=== PATIENT | male | born 2000 | race Caucasian/White ===

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

== ENCOUNTER 2021-05-05 03:43 | Emergency (ER) | payer OTHER, SELFPAY ==
[2021-05-05 03:46] VITALS: BP 139/81; PULSE 67; RESP 18; TEMP 36.6; O2SAT 100
--- NOTE | 2021-05-05 04:19 | ED.GENADULT ---
HPI - General Adult General Chief complaint: Dental/Oral Stated complaint: dental pain Time Seen by Provider: 05/05/21 04:13 History of Present Illness HPI narrative: Patient 20-year-old gentleman who presents the emergency department with chief complaint of dental pain. Patient reports he has pain in his lower mandible reports that it is worse with movement and improved with rest. The patient states that he was unable to get comfortable this evening and reports that has not seen a dentist. Related Data Home Medications Medication Instructions Recorded Confirmed beclomethasone dipropionate [Qvar INHALATION 11/01/19 RediHaler] Allergies Allergy/AdvReac Type Severity Reaction Status Date / Time mushroom Allergy Hives Verified 09/16/20 23:12 pineapple Allergy Hives Verified 09/16/20 23:12 Review of Systems Review of Systems: A 10 system review of systems was completed on the patient and is negative except for what is stated in the HPI. Nursing and ancillary documentation was reviewed. [facility] Past Medical History Medical History (Updated 05/05/21 @ 04:21 by Davdi Butler MD) History of asthma History of depression History of gastroesophageal reflux (GERD) Social History Social History Smoking status: Never smoker Alcohol intake: never Gender identity (if verbalized by the patient): Male Exam Narrative: GENERAL: Well-appearing, well-nourished, and in no acute distress. HEAD: Normocephalic, atraumatic. EYES: PERRLA and EOMI. ENT: Nares clear, no rhinorrhea or epistaxis. Mucous membranes moist. There are several dental caries in the lower mandible NECK: Supple. CHEST: Clear to auscultation. No respiratory distress. HEART: Regular rate and rhythm. No murmur heard. Normal peripheral pulses. ABDOMEN: Soft, nontender, nondistended, normal active bowel sounds. EXTREMITIES: Normal range of motion. No edema. SKIN: Warm, dry, no rash. NEURO: No focal deficits. Alert and oriented x3. PSYCH: Normal mood and affect. Course Vital Signs Vital signs: Vital Signs Temperature 36.6 C 05/05/21 03:46 Pulse Rate 67 05/05/21 03:46 Respiratory Rate 18 05/05/21 03:46 Blood Pressure 139/81 05/05/21 03:46 Pulse Oximetry 100 05/05/21 03:46 Temperature 36.6 C 05/05/21 03:46 Pulse Rate 67 05/05/21 03:46 Respiratory Rate 18 05/05/21 03:46 Blood Pressure 139/81 05/05/21 03:46 Pulse Oximetry 100 05/05/21 03:46 Medical Decision Making Vital Signs Vital Signs: Vital Signs Temperature 36.6 C 05/05/21 03:46 Pulse Rate 67 05/05/21 03:46 Respiratory Rate 18 05/05/21 03:46 Blood Pressure 139/81 05/05/21 03:46 Pulse Oximetry 100 05/05/21 03:46 Temperature 36.6 C 05/05/21 03:46 Pulse Rate 67 05/05/21 03:46 Respiratory Rate 18 05/05/21 03:46 Blood Pressure 139/81 05/05/21 03:46 Pulse Oximetry 100 05/05/21 03:46 Discharge Plan Discharge Clinical Impression: Odontalgia, Dental caries Patient Disposition: Home, Self-Care Condition: Stable Instructions: Antibiotic Form, Toothache (ED) Prescriptions: New amoxicillin 500 mg capsule 500 mg PO Q12H Qty: 20 RF: 0 ibuprofen 800 mg tablet 800 mg PO TID PRN (Reason: pain) Qty: 30 RF: 0 No Action valacyclovir 1 gram tablet 1,000 mg PO Q12H 7 Days Qty: 14 RF: 0 amoxicillin 875 mg tablet 875 mg PO Q12H Qty: 20 RF: 0 Qvar RediHaler 80 mcg/actuation HFA aerosol breath activated INHALATION RF: 0 famotidine [Pepcid] 20 mg tablet 20 mg PO BID Qty: 30 RF: 0 loratadine [Claritin] 10 mg tablet 10 mg PO DAILY PRN (Reason: allergy symptoms) Qty: 7 RF: 0 fluticasone propionate [Flonase Allergy Relief] 50 mcg/actuation spray,suspension 2 spray NASAL DAILY Qty: 9.9 RF: 0 albuterol sulfate 90 mcg/actuation HFA aerosol inhaler 3 inhalation INHALATION Q4H PRN (Reason:
[2021-05-05] MEDS: AMOXICILLIN 500 MG CAPSULE PO (04:32)
[2021-05-05] MEDS: IBUPROFEN 400 MG TABLET 800 MG PO (04:32)
== END 2021-05-05 04:36 | disposition home or self-care (01) ==
PROVIDERS: Emergency Provider Emergency Medicine; PCP Family Medicine
DX: K02.9 Dental caries, unspecified (principal); J45.909 Unspecified asthma, uncomplicated; K21.9 Gastro-esophageal reflux disease without esophagitis
CPT/HCPCS: 99283; A9270

== ENCOUNTER 2021-09-30 07:36 | Emergency (ER) | payer OTHER, SELFPAY ==
--- NOTE | 2021-09-30 08:01 | ED.DENTAL ---
HPI - Dental/Oral General Chief complaint: Dental/Oral Stated complaint: toothache Time Seen by Provider: 09/30/21 07:58 History of Present Illness HPI Narrative: 20-year-old male presented to the emergency department for evaluation of recurrent dental pain. Patient states over the last 3 months he had multiple episodes of recurrent dental pain. Patient has been on antibiotics previously and states this does help but then the pain does return. Patient has not yet had follow-up with a dentist. Patient states is the bottom right molars that are causing the problem. Patient has been taking [id number] pain medication without significant improvement. Related Data Home Medications Medication Instructions Recorded Confirmed beclomethasone dipropionate 80 inhalation 11/01/19 mcg/actuation HFA breath activated aerosol (Qvar RediHaler) Allergies Allergy/AdvReac Type Severity Reaction Status Date / Time mushroom Allergy Hives Verified 09/16/20 23:12 pineapple Allergy Hives Verified 09/16/20 23:12 Review of Systems Review of Systems: CONSTITUTIONAL: Denies fever, chills, or sweats. EYES: Denies visual changes, redness, or discharge. ENT: See HPI CARDIOVASCULAR: Denies chest pain, palpitations, or edema. RESPIRATORY: Denies cough or dyspnea. GASTROINTESTINAL: Denies abdominal pain, nausea, vomiting, or diarrhea. GENITOURINARY: Denies dysuria or hematuria. SKIN: Denies rash or itching. MUSCULOSKELETAL: Denies back pain, joint pain, or myalgia. NEUROLOGIC: Denies headache, numbness, or weakness. [facility] Past Medical History Medical History (Updated 10/01/21 @ 00:00 by Chuck Frank) History of asthma History of depression History of gastroesophageal reflux (GERD) Social History Social History Smoking status: Never smoker Alcohol intake: never Gender identity (if verbalized by the patient): Male Exam Narrative: APPEARANCE: Well appearing, no pain, no distress, well-nourished. HEAD: normocephalic, atraumatic. EYES: PERRLA/EOMI, conjunctivae clear. NOSE: Normal no drainage EARS:TMS clear with good light reflex. THROAT: Pharynx clear, no exudate. Dental carry involving the right lower molars. No abscess, no trismus, NECK: Supple. No adenopathy, no masses. RESPIRATORY: Airway patent, respirations nonlabored. Clear to auscultation bilaterally, no rales, rhonchi, wheezing. CARDIOVASCULAR: Regular rate and rhythm without murmurs rubs or gallops. ABDOMINAL: Soft, nontender, nondistended, normal bowel sounds MUSCULOSKELETAL: Moves all extremities. Strength/ROM intact, No edema, No calf tenderness. NEURO: Alert. Cranial nerves II through XII intact. Good gait. Good coordination SKIN: Warm, dry. Normal Color PSYCHIATRIC: Normal affect/mood. Course Course Emergency Course: Patient was started on Augmentin in the emergency department. Patient was also provided a prescription for Augmentin for home. Patient was also provided a prescription for ibuprofen. Patient was strongly encouraged to have close follow-up with a dentist or that this will continue to be a recurrent issue for him. Vital Signs Vital signs: Vital Signs Temperature 98.6 F 09/30/21 08:10 Pulse Rate 72 09/30/21 08:10 Respiratory Rate 14 09/30/21 08:10 Blood Pressure 126/78 09/30/21 08:10 Pulse Oximetry 99 09/30/21 08:10 Oxygen Delivery Room Air 09/30/21 08:10 Temperature 98.6 F 09/30/21 08:10 Pulse Rate 72 09/30/21 08:10 Respiratory Rate 14 09/30/21 08:10 Blood Pressure 126/78 09/30/21 08:10 Pulse Oximetry 99 09/30/21 08:10 Oxygen Delivery Room Air 09/30/21 08:10 Discharge Plan Discharge Clinical Impression: Pain, dental, Dental caries Patient Disposition: Home, Self-Care Condition: Stable Instructions: Antibiotic Form, Toothache (ED) Additional Instructions: Antibiotic as directed until completed. Tylenol a
[2021-09-30 08:10] VITALS: BP 126/78; PULSE 72; RESP 14; TEMP 37; O2SAT 99
[2021-09-30] MEDS: AMOXICILLIN/CLAVULANATE K 875-125 MG TAB 1 TABLET PO (08:49)
== END 2021-09-30 08:53 | disposition home or self-care (01) ==
PROVIDERS: Emergency Provider Emergency Medicine; PCP Family Medicine
DX: K02.9 Dental caries, unspecified (principal); J45.909 Unspecified asthma, uncomplicated; K21.9 Gastro-esophageal reflux disease without esophagitis
CPT/HCPCS: 99283; A9270

== ENCOUNTER 2021-10-09 11:48 | Emergency (ER) | payer OTHER, SELFPAY ==
[2021-10-09 11:56] VITALS: BP 142/65; PULSE 55; RESP 20; TEMP 36.7; O2SAT 100
--- NOTE | 2021-10-09 12:08 | PC.NURSE ---
EDP at bedside to assess pt.
--- NOTE | 2021-10-09 12:18 | ED.DENTAL ---
HPI - Dental/Oral General Chief complaint: Dental/Oral Stated complaint: tooth ache Time Seen by Provider: 10/09/21 11:52 History of Present Illness HPI Narrative: 20-year-old male presents to the emergency room for evaluation of right lower dental pain. Patient states he was recently evaluated here in the emergency room for dental pain, has completed a course of antibiotics. Patient states that he made appointment to see a dentist, but is not until November. Patient is complaining of a different tooth pain. Related Data Home Medications Medication Instructions Recorded Confirmed beclomethasone dipropionate 80 inhalation 11/01/19 mcg/actuation HFA breath activated aerosol (Qvar RediHaler) Allergies Allergy/AdvReac Type Severity Reaction Status Date / Time mushroom Allergy Hives Verified 09/16/20 23:12 pineapple Allergy Hives Verified 09/16/20 23:12 Review of Systems Review of Systems: CONSTITUTIONAL: Denies fever, chills, or sweats. EYES: Denies visual changes, redness, or discharge. ENT: Reports dental pain CARDIOVASCULAR: Denies chest pain, palpitations, or edema. RESPIRATORY: Denies cough or dyspnea. GASTROINTESTINAL: Denies abdominal pain, nausea, vomiting, or diarrhea. GENITOURINARY: Denies dysuria or hematuria. SKIN: Denies rash or itching. MUSCULOSKELETAL: Denies back pain, joint pain, or myalgia. NEUROLOGIC: Denies headache, numbness, dizziness, or weakness. PSYCHIATRIC: Denies anxiety or depression. [facility] Past Medical History Medical History (Updated 10/09/21 @ 12:20 by Gregg Barros APRN) History of asthma History of depression History of gastroesophageal reflux (GERD) Social History Social History Smoking status: Never smoker Alcohol intake: never Gender identity (if verbalized by the patient): Male Exam Narrative: GENERAL: Well-appearing, well-nourished, no physical limitations, and in no acute distress. HEAD: Normocephalic, atraumatic. EYES: Conjunctivae normal, PERRLA and EOMI. ENT: Tenderness to the right lower canine, widespread caries NECK: Supple. No meningeal signs. No adenopathy or masses. No carotid bruits or JVD CHEST: Clear to auscultation. No respiratory distress. No wheezes rales or rhonchi. No tenderness. HEART: Regular rate and rhythm. No murmur heard. Normal peripheral pulses. EXTREMITIES: Normal range of motion. No edema. No clubbing or cyanosis SKIN: Warm, dry, no rash. No noted wounds NEURO: No focal deficits. Alert and oriented x3. MAEW. CN's II-XI intact bilaterally, normal gait PSYCH: Cooperative. Normal mood and affect. Course Vital Signs Vital signs: Vital Signs Temperature 36.7 C 10/09/21 11:56 Pulse Rate 55 L 10/09/21 11:56 Respiratory Rate 20 10/09/21 11:56 Blood Pressure 142/65 H 10/09/21 11:56 Pulse Oximetry 100 10/09/21 11:56 Oxygen Delivery Room Air 10/09/21 11:56 Temperature 36.7 C 10/09/21 11:56 Pulse Rate 55 L 10/09/21 11:56 Respiratory Rate 20 10/09/21 11:56 Blood Pressure 142/65 H 10/09/21 11:56 Pulse Oximetry 100 10/09/21 11:56 Oxygen Delivery Room Air 10/09/21 11:56 Discharge Plan Discharge Clinical Impression: Toothache Patient Disposition: Home, Self-Care Condition: Stable Instructions: Antibiotic Form, Toothache (ED) Additional Instructions: Recommend [facility]. May also take Orajel and placed on affected tooth. Recommend switching her toothpaste to Sensodyne. Prescriptions: New naproxen [Naprosyn] 500 mg tablet 500 mg PO BID Qty: 20 0RF No Action valacyclovir 1 gram tablet 1,000 mg PO Q12H 7 Days Qty: 14 0RF amoxicillin 875 mg tablet 875 mg PO Q12H Qty: 20 0RF Qvar RediHaler 80 mcg/actuation HFA aerosol breath activated INHALATION famotidine [Pepcid] 20 mg tablet 20 mg PO BID Qty: 30 0RF loratadine [Claritin] 10 mg tablet 10 mg PO D
== END 2021-10-09 12:57 | disposition home or self-care (01) ==
PROVIDERS: Emergency Provider Nurse Practitioner Family; PCP Family Medicine
DX: K08.89 Other specified disorders of teeth and supporting structures (principal); J45.909 Unspecified asthma, uncomplicated; K21.9 Gastro-esophageal reflux disease without esophagitis
CPT/HCPCS: 99283

== ENCOUNTER 2021-10-14 09:07 | Observation (INO) | payer OTHER, SELFPAY ==
--- NOTE | ~2021-10-14 | CT_ITS ---
EXAMINATION: CT abdomen pelvis wo con DATE: 10/14/2021 10:57 INDICATION: Hematuria. Generalized abdominal pain. Nausea, vomiting, diarrhea for 3 days TECHNIQUE: Computed tomography (CT) of the abdomen and pelvis was performed without intravenous contr ast. Automated exposure control and iterative reconstruction technique were employed. Exam dose: 261 .22 mGy-cm total exam DLP. COMPARISON: June 08, 2017 right upper quadrant abdominal ultrasound, reported normal FINDINGS: The lung bases are clear. Normal heart size. No pericardial or pleural effusion. The liver, gallbladder, bile ducts, spleen, pancreas, pancreatic duct and adrenal glands are normal. Approximately 1.7 x 3.3 mm calculus is suggested at the lower pole of the right kidney no ureteral ca lculus or hydroureteronephrosis. Normal caliber of the abdominal aorta. No intraperitoneal or retroperitoneal or pelvic mass lesion or adenopathy or ascites. There is a tubular blind ending structure in the right lower quadrant measuring up to 10 mm diameter, with mild adjacent fat stranding, most consistent with acute appendicitis. No appendiceal abscess or free air is evident. Included skeletal structures are unremarkable. IMPRESSION: Acute appendicitis; no abscess or free air Small nonobstructing lower pole right renal calculus is suggested Reviewed, dictated and finalized at [facility] Reviewed, dictated and finalized at [facility].
[2021-10-14 09:10] VITALS: BP 128/75; PULSE 103; RESP 16; TEMP 37.4; O2SAT 100
[2021-10-14 09:32] LABS: Hematocrit 44.3 % (42.0-52.0); Hemoglobin 14.6 g/dL (14.0-18.0); Mean Corpuscular Hemoglobin 27.9 pg (26-34); Mean Corpuscular Volume 84.5 fl (80-100); Mean Platelet Volume 9.9 fl (7.4-10.4); Platelet Count Result 222 k/mm3 (150-375); Red Blood Count 5.24 M/mm3 (4.6-6.20); Red Cell Distribution Width 13.8 % (11.5-14.5); White Blood Count 11.2 K/mm3 (4.5-10.0)
[2021-10-14 09:33] LABS: Appearance Urine Slightly Cloudy (Clear); Bilirubin Urine 1+ (Negative); Blood Urine 3+ (Negative); Color Urine Amber (Yellow); Glucose Urine UA 1+ mg/dL (Negative); Ketones Urine 1+ mg/dL (Negative); Leukocyte Esterase Ur Negative LEU/UL (Negative); Nitrate Urine Negative (Negative); Protein Urine 2+ mg/dL (Negative); Specific Grav Ur >= 1.030 (1.001-1.035); Urobilinogen Urine 0.2 mg/dL (<2.0)
[2021-10-14 09:43] LABS: Alanine Aminotransferase 29 U/L (6-50); Albumin Level 4.8 g/dL (3.7-5.6); Alkaline Phosphatase 126 U/L (58-237); Anion Gap 11 mmol/L (8-16); Aspartate Amino Transferase 31 U/L (17-59); Bilirubin,Total 2.3 mg/dL (0.2-1.3); Blood Urea Nitrogen 16 mg/dL (8-21); Calcium 9.2 mg/dL (8.9-10.7); Carbon Dioxide 22 mmol/L (22-30); Chloride 100 mmol/L (98-107); Estimated CRCL calculation 101 ml/min; Estimated Glomerular Filt Rate > 60; Glucose 163 mg/dL (65-110); Lipase 39 U/L (23-300); Potassium 3.6 mmol/L (3.4-5.0); Sodium 133 mmol/L (134-143)
[2021-10-14 09:49] LABS: Mucus Urine Heavy /lpf; RBC Urine >75 /hpf (0-2); Squamous Epithelial Cell Urine Rare /hpf (Few)
[2021-10-14 09:59] LABS: Add Urine Microscopic? YES
[2021-10-14 10:06] LABS: Band Neutrophils Percent 26 % (0-6); Lymphocytes Absolute Manual 0.44 K/mm3 (1.1-4.5); Monocytes Percent Manual 9 % (3-9); Neutrophils Absolute Manual 9.74 K/mm3 (1.3-6.7); Neutrophils Percent Manual 61 % (46-73); Platelet Estimate Adequate (Adequate); Total Cells Counted 100
--- NOTE | 2021-10-14 10:52 | ED.NAVMDI ---
HPI - Nausea/Vomiting/Diarrhea General Chief complaint: Nausea/Vomiting/Diarrhea Stated complaint: abd pain Time Seen by Provider: 10/14/21 10:45 History of Present Illness HPI Narrative: 20-year-old male presents to the emergency room for evaluation of generalized abdominal pain associated with vomiting and diarrhea for 3 days. Patient pain is cramping and sharp at times. Has had multiple episodes of nonbilious nonbloody emesis, and upwards of 15-20 episodes of diarrhea. Patient denies fever Related Data Home Medications Medication Instructions Recorded Confirmed beclomethasone dipropionate 80 inhalation 11/01/19 mcg/actuation HFA breath activated aerosol (Qvar RediHaler) Allergies Allergy/AdvReac Type Severity Reaction Status Date / Time mushroom Allergy Hives Verified 10/14/21 09:17 pineapple Allergy Hives Verified 10/14/21 09:17 Review of Systems Review of Systems: CONSTITUTIONAL: Denies fever, chills, or sweats. EYES: Denies visual changes, redness, or discharge. ENT: Denies rhinorrhea, congestion, sore throat, or otalgia. CARDIOVASCULAR: Denies chest pain, palpitations, or edema. RESPIRATORY: Denies cough or dyspnea. GASTROINTESTINAL: Reports abdominal pain, nausea, vomiting, or diarrhea. GENITOURINARY: Denies dysuria or hematuria. SKIN: Denies rash or itching. MUSCULOSKELETAL: Denies back pain, joint pain, or myalgia. NEUROLOGIC: Denies headache, numbness, dizziness, or weakness. PSYCHIATRIC: Denies anxiety or depression. [facility] Past Medical History Medical History (Updated 10/14/21 @ 12:44 by Gregg Barros APRN) History of asthma History of depression History of gastroesophageal reflux (GERD) Social History Social History Smoking status: Never smoker Alcohol intake: never Gender identity (if verbalized by the patient): Male Exam Narrative: GENERAL: Well-appearing, well-nourished, no physical limitations, and in no acute distress. HEAD: Normocephalic, atraumatic. EYES: Conjunctivae normal, PERRLA and EOMI. CHEST: Clear to auscultation. No respiratory distress. No wheezes rales or rhonchi. No tenderness. HEART: Regular rate and rhythm. No murmur heard. Normal peripheral pulses. ABDOMEN: Soft, generalized tenderness, nondistended, normal active bowel sounds. BACK: No CVA tenderness EXTREMITIES: Normal range of motion. No edema. No clubbing or cyanosis SKIN: Warm, dry, no rash. No noted wounds NEURO: No focal deficits. Alert and oriented x3. MAEW. CN's II-XI intact bilaterally, normal gait PSYCH: Cooperative. Normal mood and affect. Course Vital Signs Vital signs: Vital Signs Temperature 37.4 C 10/14/21 09:10 Pulse Rate 103 H 10/14/21 09:10 Respiratory Rate 16 10/14/21 09:10 Blood Pressure 128/75 10/14/21 09:10 Pulse Oximetry 100 10/14/21 09:10 Oxygen Delivery Room Air 10/14/21 09:10 Temperature 37.4 C 10/14/21 09:10 Pulse Rate 76 10/14/21 12:30 Respiratory Rate 18 10/14/21 12:30 Blood Pressure 111/57 L 10/14/21 12:30 Pulse Oximetry 99 10/14/21 12:30 Oxygen Delivery Room Air 10/14/21 09:10 MDM - Nausea/Vomiting/Diarrhea MDM Narrative Medical decision making narrative: 20-year-old male presented to the emergency room complaints of generalized abdominal pain for 3 days. Patient states that he had multiple episodes of vomiting and diarrhea. Abdominal exam was without any peritoneal signs. CT scan shows an acute appendectomy with no evidence of abscess. Discussed case with Dr. Goldsmith who is willing to admit under his service. Patient was given a liter of fluid and Zosyn was started in the emergency room. Lab Data Result diagrams: 10/14/21 09:24 10/14/21 09:24 Labs: Lab Results 10/14/21 10/14/21 10/14/21 Range/Units 09:24 09:24 09:24 WBC 11.2 H (4.5-10.0) K/mm3 RBC 5.24 (4.6-6.20) M/mm3 Hgb 14.6 (14.0-18.0) g/dL Hct
[2021-10-14] MEDS: SODIUM CHLORIDE 0.9% IV 1,000 ML 999 ML IV CONT (11:04)
[2021-10-14] MEDS: METOCLOPRAMIDE HCL INJ 10 MG/2 ML VIAL IV PUSH (11:05)
[2021-10-14] MEDS: FAMOTIDINE 20 MG/2 ML VIAL IV PUSH ×2 (11:05→20:12)
[2021-10-14] MEDS: diphenhydrAMINE HCl INJ 50 MG/ML VIAL 25 MG IV PUSH (11:05)
[2021-10-14] MEDS: LACTATED RINGERS 1,000 ML 999 ML IV CONT (11:11)
[2021-10-14] MEDS: ONDANSETRON INJ 4 MG/2 ML VIAL IV PUSH (11:11)
[2021-10-14] MEDS: PIPERACILLIN/TAZOBACTAM SOD 4.5 GM in SODIUM CHLORIDE 0.9% IV 100 ML 200 ML IVPB (12:27)
[2021-10-14 12:30] VITALS: BP 111/57; PULSE 76; RESP 18; O2SAT 99
[2021-10-14 14:21] VITALS: BP 117/70; PULSE 94; RESP 18; TEMP 36.8; O2SAT 100; BMI 24.3
--- NOTE | 2021-10-14 14:21 | ADMGEN ---
This patient, Darrel Herron, was admitted to Medical Room 346-01. Patient/family oriented to hospital policies and general routines including ID bracelet, bed and alarms, visiting hours, pain management, procedures, bathroom and other care routines, personal items, smoking policy, room service/diet, and visiting hours. Information on how to activate the Rapid Response Team has been discussed. Patient/Family are encouraged to report perceived risks to care and to ask questions if they do not understand what they are told or what they should do.
[2021-10-14] MEDS: SODIUM CHLORIDE 0.9% IV 1,000 ML 125 ML IV CONT ×2 (14:45→20:12)
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
[2021-10-14 16:44] VITALS: BMI 23.3
[2021-10-14 20:00] VITALS: BP 118/60; PULSE 96; RESP 16; TEMP 38.1; O2SAT 100
[2021-10-14 21:19] VITALS: TEMP 38.1
[2021-10-14 21:44] VITALS: BP 118/60; PULSE 96; RESP 16; TEMP 38.1; O2SAT 100
[2021-10-14 22:51] LABS: SARS-CoV-2 RNA PCR Negative
[2021-10-15] VITALS: BP 110/61; PULSE 96; RESP 16; TEMP 37.2; O2SAT 100
[2021-10-15 04:00] VITALS: BP 101/85; PULSE 66; RESP 14; TEMP 36.7; O2SAT 100
[2021-10-15] MEDS: SODIUM CHLORIDE 0.9% IV 1,000 ML 125 ML IV CONT (05:53)
[2021-10-15 06:00] VITALS: BP 101/85; PULSE 66; RESP 14; TEMP 36.7; O2SAT 100
[2021-10-15 06:27] LABS: Hematocrit 37.4 % (42.0-52.0); Hemoglobin 12.8 g/dL (14.0-18.0); Mean Corpuscular HGB Conc 34.2 g/dl (32-36); Mean Corpuscular Hemoglobin 28.2 pg (26-34); Mean Corpuscular Volume 82.4 fl (80-100); Mean Platelet Volume 10.3 fl (7.4-10.4); Platelet Count Result 175 k/mm3 (150-375); Red Blood Count 4.54 M/mm3 (4.6-6.20); Red Cell Distribution Width 13.7 % (11.5-14.5); White Blood Count 6.3 K/mm3 (4.5-10.0)
[2021-10-15 07:20] LABS: Alanine Aminotransferase 19 U/L (6-50); Albumin Level 3.3 g/dL (3.7-5.6); Alkaline Phosphatase 96 U/L (58-237); Anion Gap 3 mmol/L (8-16); Aspartate Amino Transferase 33 U/L (17-59); Bilirubin,Total 1.2 mg/dL (0.2-1.3); Blood Urea Nitrogen 10 mg/dL (8-21); Calcium 8.2 mg/dL (8.9-10.7); Carbon Dioxide 26 mmol/L (22-30); Chloride 107 mmol/L (98-107); Estimated CRCL calculation 105 ml/min; Estimated Glomerular Filt Rate > 60; Glucose 105 mg/dL (65-110); Magnesium 1.7 mg/dL (1.6-2.3); Potassium 4.1 mmol/L (3.4-5.0); Sodium 136 mmol/L (134-143)
[2021-10-15 07:52] LABS: Band Neutrophils Percent 42 % (0-6); Lymphocytes Absolute Manual 0.37 K/mm3 (1.1-4.5); Monocytes Percent Manual 8 % (3-9); Neutrophils Absolute Manual 5.41 K/mm3 (1.3-6.7); Neutrophils Percent Manual 44 % (46-73); Platelet Estimate Adequate (Adequate); Total Cells Counted 100
[2021-10-15] MEDS: FAMOTIDINE 20 MG/2 ML VIAL IV PUSH (09:21)
--- NOTE | 2021-10-15 10:22 | PM.PNGS ---
Progress Note: A&P Assessment and Plan (1) Acute appendicitis: Code(s): K35.80 - Unspecified acute appendicitis Status: Acute Assessment and Plan: Clinically improving on IV antibiotics. Still has not had any abdominal or flank pain since being in the ER. WBC normal, afebrile. Will advance diet as tolerated to a regular diet. Repeat UA and add gonorrhea/chlamydia testing. Still believe that he may have passed a kidney stone causing his symptoms. Unclear if he truly has appendicitis. Dr. Goldsmith will review the CT with the Radiologist today, if there is still a question of appendicitis on the CT then we will send him with oral antibiotics on discharge. Continue IV Zosyn for now. If he tolerates his diet and continues to do well later today, then could discharge this afternoon. (2) Abnormal urinalysis: Code(s): R82.90 - Unspecified abnormal findings in urine Status: Acute Assessment and Plan: Initial UA abnormal with high RBCs. May have passed a stone. Repeat a UA today and add G/C testing. No urinary complaints today. Recommended f/u with PCP after discharge. May need Urology referral. (3) Nausea and vomiting: Code(s): R11.2 - Nausea with vomiting, unspecified Status: Acute Assessment and Plan: Resolved. Advance diet as tolerated. COVID negative. (4) History of asthma: Code(s): Z87.09 - Personal history of other diseases of the respiratory system Status: Acute Assessment and Plan: No acute issues. No wheezing on exam. F/u with PCP for further management. (5) History of gastroesophageal reflux (GERD): Code(s): Z87.19 - Personal history of other diseases of the digestive system Status: Acute Assessment and Plan: Continue IV Pepcid. (6) Right kidney stone: Code(s): N20.0 - Calculus of kidney Status: Acute Assessment and Plan: Incidentally noted on CT. This is not in the ureter and there is no hydronephrosis or evidence of an obstruction. Discussed signs and symptoms of passing a stone and what to look for. Recommended f/u with PCP as an outpatient. Plan I have discussed the patient's case and plan of care with Dr. Goldsmith. Subjective Subjective Date/Time Seen: 10/15/21 09:22 Patient reports: no new complaints, feels better, tolerating liquids well, voiding w/o difficulty, flatus and afebrile Interval history: Patient seen and examined. He reports feeling much better today. No complaints and denies any abdominal pain, nausea, or vomiting. He has tolerated liquids for breakfast. He is not having any urinary complaints or flank pain. Voiding without difficulty. Afebrile and WBC count down to normal this morning. Review of Systems Review of Systems: All systems reviewed & are unremarkable except as noted in HPI and below Exam Const: General: comfortable, no acute distress and awake Orientation/consciousness: patient oriented x3 Resp: Effort & Inspection: no respiratory distress Auscultation: clear to auscultation bilaterally Cardio: Rate: regular rate Rhythm: regular rhythm GI: Inspection: normal to inspection and non-distended GI Palp: Yes Soft to palpation, No Tenderness to palpation present (GI), No Guarding due to palpation present (GI), No Hernia present and No Rebound tenderness present Percussion: Yes normal to percussion Auscultation: normal bowel sounds Back/Spine/Pelvis: Back: no CVA tenderness Neuro: General: moves all extremities and no focal motor deficits Extrem: General: normal to inspection Psych: Insight: Good insight present (Psych) Judgement: Good judgement present (Psych) Objective Data Vital Signs Vital Signs: Vital Signs - 24 hr 10/14/21 12:30 10/14/21 14:21 10/14/21 21:19 Temperature 98.2 F 100.5 F H Pulse Rate 76 94 Respiratory Rate 18 18 Blood Pressure 111/57 L 117/70 Pulse Oximetry 99 100 10/14/21 20:00 10/14/21 21:44 10/15/21 0
--- NOTE | 2021-10-15 14:08 | PM.DS ---
DS: Admitting Diagnosis Discharge Date 10/15/21 Admitting Diagnosis Acute appendicitis Flank pain Abnormal Urinalysis Nausea and vomiting Right kidney stone History of asthma GERD DS: Discharge Diagnosis Discharge Diagnosis (1) Acute appendicitis: Code(s): K35.80 - Unspecified acute appendicitis Status: Acute (2) Abnormal urinalysis: Code(s): R82.90 - Unspecified abnormal findings in urine Status: Acute (3) Right kidney stone: Code(s): N20.0 - Calculus of kidney Status: Acute (4) History of gastroesophageal reflux (GERD): Code(s): Z87.19 - Personal history of other diseases of the digestive system Status: Acute (5) History of asthma: Code(s): Z87.09 - Personal history of other diseases of the respiratory system Status: Acute DS: Summary Hospital Course Reason for hospitalization: This is a 20-year-old male who presented to the ER with complaints of periumbilical pain, vomiting, and diarrhea x 3 days. His nausea and loose stools seemed to be improving, but his periumbilical pain persisted. He also reported right flank pain that was ongoing for these 3 days. Workup in the ED showed mild leukocytosis with a WBC count 11,[address] an [address] abdomen/pelvis suggested possible acute appendicitis without evidence of perforation or abscess. He was admitted for further treatment. Hospital Course: The patient's presentation and physial exam were atypical for acute appendicitis. His periumbilical abdominal pain completely resolved while in the ER and he had no abdominal tenderness on exam. He also endorsed one episode of penile pain with voiding earlier in the morning prior to coming to the ER with right flank pain. His UA had high RBCs and there was a concern he may have passed a kidney stone. After discussion with the patient, it was decided to try treating him with IV antibiotics and monitoring for the acute appendicitis. COVID was tested and negative. Labs were repeated today and his WBC count was normal. He is still not having any more abdominal pain, nausea, or vomiting. His loose stools resolved. He was slowly advanced on a diet today to a regular diet and has tolerated this well. We repeated a UA today and added urine G/C to further evaluate the penile pain. Patient is stable for discharge and will be sent a prescription for Augmentin and Flagyl to complete an additional 7 day course of oral antibiotics to cover for the acute appendicitis. Depending on his STD testing, I discussed with him that he may require additional treatment depending on those results. He is also aware of the risk of recurrence of appendicitis given the treatment with oral antibiotics and he is agreeable to this. Status at Discharge Functional status at discharge: independent ambulation Overall status at discharge: patient is back to baseline Time Spent with Patient Time attestation: Total time spent providing and/or coordinating discharge services: Time spent: Less than 30 minutes Exam Narrative: See progress note from earlier today for exam. DS: Data Data Completed and Pending Pending studies at discharge: Urinalysis w/ micro w/ culture Gonorrhea/chlamydia Labs on day of discharge: Labs from last 24 hours 10/15/21 10/15/21 10/15/21 09:53 06:12 06:12 WBC 6.3 RBC 4.54 L Hgb 12.8 L Hct 37.4 L MCV 82.4 MCH 28.2 MCHC 34.2 RDW 13.7 Plt Count 175 MPV 10.3 Immature Gran % (Auto) Not Reportable Neut % (Auto) Not Reportable Lymph % (Auto) Not Reportable Cecil % (Auto) Not Reportable Eos % (Auto) Not Reportable Baso % (Auto) Not Reportable Lymph # (Auto) Not Reportable Cecil # (Auto) Not Reportable Eos # (Auto) Not Reportable Baso # (Auto) Not Reportable Abs Immat Gran (auto) Not Reportable Absolute Neuts (auto) Not Reportable Absolute Nucleated RBC Not Reportable Total Counted 100 Neutrophils % (Manual
[2021-10-15 14:51] LABS: Appearance Urine Clear (Clear); Bilirubin Urine Negative (Negative); Blood Urine Negative (Negative); Color Urine Yellow (Yellow); Glucose Urine UA Negative (Negative); Ketones Urine Negative (Negative); Leukocyte Esterase Ur Negative LEU/UL (Negative); Nitrate Urine Negative (Negative); Protein Urine 1+ mg/dL (Negative); Specific Grav Ur 1.025 (1.001-1.035); Urobilinogen Urine 0.2 mg/dL (<2.0); pH Urine 6.5 (5.0-9.0)
[2021-10-15 14:58] LABS: Mucus Urine Rare /lpf; RBC Urine 0-2 /hpf (0-2); WBC Urine 0-3 /hpf
[2021-10-15 14:59] LABS: Add Urine Microscopic? YES
== END 2021-10-15 15:25 | disposition home or self-care (01) ==
LOC: ANHED 12:44 → ANH3MED 13:22
PROVIDERS: Emergency Medicine; Nurse Practitioner Family; Admitting Provider Surgery; Emergency Provider Nurse Practitioner Family; PCP Family Medicine; Visit Provider Surgery
DX: K35.80 Unspecified acute appendicitis (principal); R82.90 Unspecified abnormal findings in urine; R10.9 Unspecified abdominal pain; N20.0 Calculus of kidney; Z87.19 Personal history of other diseases of the digestive system; Z87.09 Personal history of other diseases of the respiratory system; R11.2 Nausea with vomiting, unspecified; Z20.822 Contact with and (suspected) exposure to COVID-19; Z79.1 Long term (current) use of non-steroidal anti-inflammatories (NSAID)
CPT/HCPCS: 36415; 74176; 80053; 81001; 83690; 83735; 85025; 87491; 87591; 96361; 96365; 96375; 96376; 99285; C9803; G0378; G0379; J0131; J1200; J2405; J2543; J2765; J7030; J7120; U0003; U0005

== ENCOUNTER 2021-10-29 14:46 | Emergency (ER) | payer OTHER, SELFPAY ==
--- NOTE | ~2021-10-29 | CT_ITS ---
EXAMINATION: CT abdomen pelvis wo con DATE: 10/29/2021 15:51 INDICATION: Suprapubic and lower abdominal pain TECHNIQUE: Computed tomography (CT) of the abdomen and pelvis was performed without intravenous contr ast. Automated exposure control and iterative reconstruction technique were employed. Exam dose: 242 .77 mGy-cm total exam DLP. COMPARISON: 10/14/2021 CT abdomen pelvis FINDINGS: The lung bases are clear. Normal heart size. No pericardial or pleural effusion. The liver, gallbladder, bile ducts, spleen, pancreas, and adrenal glands and kidneys are unremarkable . Interval decreased size and resolution of mild periappendiceal fat stranding since 10/14/2021. No bowel obstruction or intraperitoneal free air. The urinary bladder and prostate gland are unremarkable. Included skeletal structures are unremarkable. IMPRESSION: Diminished size of the appendix interval resolution of periappendiceal inflammation sinc e 10/14/2021 No significant abnormality Reviewed, dictated and finalized at [facility]. Reviewed, dictated and finalized at [facility]. IMPRESSION: Diminished size of the appendix interval resolution of periappendi ceal inflammation since 10/14/2021 No significant abnormality
[2021-10-29 14:47] VITALS: BP 119/90; PULSE 85; RESP 16; TEMP 37.3; O2SAT 100
[2021-10-29 15:06] LABS: Basophils Percent Auto 0.4 % (0.2-1.2); Eosinophils Percent Auto 0.3 % (0-4.4); Hematocrit 35.4 % (42.0-52.0); Hemoglobin 11.6 g/dL (14.0-18.0); Immature Granulocyte Absolute 0.03 K/mm3 (0.00-0.031); Immature Granulocyte Percent A 0.3 % (0-0.5); Lymphocytes Absolute Auto 1.49 K/mm3 (0.9-3.2); Lymphocytes Percent Auto 15.6 % (18.3-44.2); Mean Corpuscular HGB Conc 32.8 g/dl (32-36); Mean Corpuscular Hemoglobin 27.2 pg (26-34); Mean Corpuscular Volume 83.1 fl (80-100); Mean Platelet Volume 9.5 fl (7.4-10.4); Monocytes Absolute Auto 0.8 K/mm3 (0.1-0.6); Monocytes Percent Auto 7.8 % (2.6-8.5); Neutrophils Absolute Auto 7.2 K/mm3 (1.3-6.7); Neutrophils Percent Auto 75.6 % (45.5-73.1); Platelet Count Result 302 k/mm3 (150-375); Red Blood Count 4.26 M/mm3 (4.6-6.20); Red Cell Distribution Width 14.4 % (11.5-14.5); White Blood Count 9.6 K/mm3 (4.5-10.0)
[2021-10-29 15:15] LABS: Appearance Urine Clear (Clear); Bilirubin Urine Negative (Negative); Blood Urine 2+ (Negative); Color Urine Yellow (Yellow); Glucose Urine UA Negative (Negative); Ketones Urine Trace mg/dL (Negative); Leukocyte Esterase Ur Negative LEU/UL (Negative); Nitrate Urine Negative (Negative); Protein Urine Trace mg/dL (Negative); Specific Grav Ur 1.025 (1.001-1.035); Urobilinogen Urine 0.2 mg/dL (<2.0); pH Urine 6.5 (5.0-9.0)
[2021-10-29 15:17] LABS: Alanine Aminotransferase 16 U/L (6-50); Alkaline Phosphatase 103 U/L (58-237); Anion Gap 5 mmol/L (8-16); Aspartate Amino Transferase 25 U/L (17-59); Bilirubin,Total 0.5 mg/dL (0.2-1.3); Blood Urea Nitrogen 12 mg/dL (8-21); Calcium 8.5 mg/dL (8.9-10.7); Carbon Dioxide 24 mmol/L (22-30); Chloride 105 mmol/L (98-107); Estimated CRCL calculation 146 ml/min; Estimated Glomerular Filt Rate > 60; Glucose 97 mg/dL (65-110); Lipase 85 U/L (23-300); Potassium 3.9 mmol/L (3.4-5.0); Sodium 134 mmol/L (134-143)
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
[2021-10-29 15:34] LABS: Mucus Urine Rare /lpf; RBC Urine >75 /hpf (0-2); Squamous Epithelial Cell Urine Rare /hpf (Few); WBC Urine 0-3 /hpf
[2021-10-29 15:38] LABS: Add Urine Microscopic? YES
[2021-10-29] MEDS: AMOXICILLIN/CLAVULANATE K 875-125 MG TAB 1 TABLET PO (16:15)
[2021-10-29 16:22] VITALS: PULSE 74; RESP 16; O2SAT 99
== END 2021-10-29 16:23 | disposition home or self-care (01) ==
PROVIDERS: Emergency Medicine; Emergency Provider Emergency Medicine; PCP Family Medicine
DX: K08.89 Other specified disorders of teeth and supporting structures (principal); R31.9 Hematuria, unspecified; J45.909 Unspecified asthma, uncomplicated; F32.9 Major depressive disorder, single episode, unspecified; K21.9 Gastro-esophageal reflux disease without esophagitis
CPT/HCPCS: 36415; 74176; 80053; 81001; 83690; 85025; 99284; A9270

== ENCOUNTER 2021-11-17 10:37 | Emergency (ER) | payer OTHER, SELFPAY ==
[2021-11-17 10:38] VITALS: BP 129/77; PULSE 54; RESP 14; TEMP 36.6; O2SAT 98
[2021-11-17 13:15] VITALS: BP 132/85; O2SAT 100
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
== END 2021-11-17 13:50 | disposition home or self-care (01) ==
PROVIDERS: Emergency Provider Emergency Medicine; PCP Family Medicine
DX: K03.81 Cracked tooth (principal); J45.909 Unspecified asthma, uncomplicated; K21.9 Gastro-esophageal reflux disease without esophagitis
CPT/HCPCS: 99283

== ENCOUNTER 2022-01-14 22:22 | Emergency (ER) | payer OTHER, SELFPAY ==
[2022-01-14 22:53] VITALS: BP 147/110; PULSE 86; RESP 18; TEMP 36.3; O2SAT 100
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
[2022-01-15] MEDS: HYDROcodone/acetaminophen (*CRX) 5-325 MG TABLET 1 TAB PO (04:12)
[2022-01-15] MEDS: LIDOCAINE HCL 1% LOCAL INJ 20 ML VIAL (04:13)
[2022-01-15] MEDS: cefTRIAXone 1 GM VIAL 0.5 GM IM (04:13)
[2022-01-15] MEDS: valACYclovir HCL 500 MG TABLET 1000 MG PO (04:50)
[2022-01-15] MEDS: DOXYCYCLINE HYCLATE 100 MG TABLET PO (04:51)
[2022-01-15 04:52] VITALS: BP 108/63; PULSE 72; RESP 16; O2SAT 100
== END 2022-01-15 04:52 | disposition home or self-care (01) ==
PROVIDERS: Emergency Provider Emergency Medicine; PCP Emergency Medicine
DX: N50.9 Disorder of male genital organs, unspecified (principal); Z11.59 Encounter for screening for other viral diseases; Z21 Asymptomatic human immunodeficiency virus [HIV] infection status; J45.909 Unspecified asthma, uncomplicated; K21.9 Gastro-esophageal reflux disease without esophagitis
CPT/HCPCS: 36415; 87593; 96372; 99283; A9270; J0696

== ENCOUNTER 2022-02-09 18:06 | Emergency (ER) | payer OTHER, SELFPAY ==
[2022-02-09 18:14] VITALS: BP 136/99; PULSE 60; RESP 18; TEMP 36.5; O2SAT 100
--- NOTE | 2022-02-09 19:48 | PC.NURSE ---
No answer to name called in waiting room
--- NOTE | 2022-02-09 19:56 | PC.NURSE ---
No answer to name called in waiting room
== END 2022-02-09 20:08 | disposition left against medical advice (07) ==
PROVIDERS: PCP Emergency Medicine
DX: K08.89 Other specified disorders of teeth and supporting structures (principal)
CPT/HCPCS: 99199

== ENCOUNTER 2022-02-10 23:12 | Emergency (ER) | payer OTHER, SELFPAY ==
[2022-02-10 23:27] VITALS: BP 147/96; PULSE 84; RESP 20; TEMP 36.5; O2SAT 100
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
== END 2022-02-11 00:20 | disposition home or self-care (01) ==
PROVIDERS: Emergency Provider Nurse Practitioner Family; PCP Emergency Medicine
DX: K04.7 Periapical abscess without sinus (principal); J45.909 Unspecified asthma, uncomplicated; K21.9 Gastro-esophageal reflux disease without esophagitis
CPT/HCPCS: 41800; 99283

== ENCOUNTER 2022-04-06 17:34 | Emergency (ER) | payer OTHER, SELFPAY ==
[2022-04-06 17:48] VITALS: BP 129/64; PULSE 74; RESP 14; TEMP 36.2; O2SAT 100
== END 2022-04-06 18:00 | disposition left against medical advice (07) ==
PROVIDERS: PCP Emergency Medicine
DX: R68.84 Jaw pain (principal)
CPT/HCPCS: 99199

== ENCOUNTER 2022-04-25 12:08 | Emergency (ER) | payer OTHER, SELFPAY ==
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
[2022-04-25 12:09] VITALS: BP 130/79; PULSE 79; RESP 16; TEMP 36.4; O2SAT 100
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
[2022-04-25] MEDS: CYCLOBENZAPRINE HCL 10 MG TABLET PO (12:27)
[2022-04-25] MEDS: IBUPROFEN 400 MG TABLET 800 MG PO (12:28)
--- NOTE | 2022-04-25 14:06 | PC.NURSE ---
Patient tolerated chacha wrap and crutch training without difficulty. Pt demonstrates appropriate and safe use of crutches.
== END 2022-04-25 14:12 | disposition home or self-care (01) ==
PROVIDERS: Emergency Provider Emergency Medicine; PCP Emergency Medicine
DX: S80.01XA Contusion of right knee, initial encounter (principal); J45.909 Unspecified asthma, uncomplicated; K21.9 Gastro-esophageal reflux disease without esophagitis; V49.40XA Driver injured in collision with unspecified motor vehicles in traffic accident, initial encounter
CPT/HCPCS: 73562; 99283; A9270

== ENCOUNTER 2022-11-15 02:49 | Emergency (ER) | payer OTHER, SELFPAY ==
--- NOTE | ~2022-11-15 | CT_ITS ---
EXAMINATION: CT abdomen pelvis w con DATE: 11/15/2022 04:58 INDICATION: Hematemesis. TECHNIQUE: Computed tomography (CT) of the abdomen and pelvis was performed with 100 mL Omnipaque 350 intravenous contrast. Automated exposure control and iterative reconstruction technique were employe d. The dose-length product was 480.53 mGy-cm. COMPARISON: CT abdomen and pelvis 10/29/2021 FINDINGS: The visualized portions of the lung bases are clear without pneumonia or pleural effusion. The heart size is normal. No pericardial effusion. The liver, gallbladder, spleen, pancreas, adrenal glands, and kidneys are normal. There are no dilated loops of bowel. The appendix is normal. There ar e no pathologically enlarged lymph nodes. There is no free intraperitoneal fluid. There is mild chron ic anterior wedging of multiple lower thoracic vertebral bodies. IMPRESSION: 1. No etiology for the patient's symptoms. Reviewed, dictated and finalized at location E.
[2022-11-15 02:50] VITALS: BP 129/84; PULSE 74; RESP 18; TEMP 36.4; O2SAT 100
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
[2022-11-15] MEDS: PANTOPRAZOLE SODIUM IV 40 MG VIAL IV PUSH (03:36)
[2022-11-15] MEDS: ONDANSETRON INJ 4 MG/2 ML VIAL IV PUSH (03:38)
[2022-11-15 03:43] LABS: Basophils Percent Auto 0.5 % (0.2-1.2); Eosinophils Absolute Auto 0.1 K/mm3 (0-0.3); Eosinophils Percent Auto 2.3 % (0-4.4); Hematocrit 39.6 % (42.0-52.0); Hemoglobin 12.9 g/dL (14.0-18.0); Immature Granulocyte Absolute 0.01 K/mm3 (0.00-0.031); Immature Granulocyte Percent A 0.2 % (0-0.5); Lymphocytes Absolute Auto 1.73 K/mm3 (0.9-3.2); Lymphocytes Percent Auto 39.1 % (18.3-44.2); Mean Corpuscular HGB Conc 32.6 g/dl (32-36); Mean Corpuscular Hemoglobin 28.4 pg (26-34); Mean Platelet Volume 10.5 fl (7.4-10.4); Monocytes Absolute Auto 0.4 K/mm3 (0.1-0.6); Monocytes Percent Auto 9.3 % (2.6-8.5); Neutrophils Absolute Auto 2.2 K/mm3 (1.3-6.7); Neutrophils Percent Auto 48.6 % (45.5-73.1); Platelet Count Result 199 k/mm3 (150-375); Red Blood Count 4.55 M/mm3 (4.6-6.20); Red Cell Distribution Width 13.6 % (11.5-14.5); White Blood Count 4.4 K/mm3 (4.5-10.0)
[2022-11-15 04:16] LABS: Alanine Aminotransferase 24 U/L (6-50); Alkaline Phosphatase 91 U/L (38-126); Anion Gap 5 mmol/L (8-16); Aspartate Amino Transferase 29 U/L (17-59); Bilirubin,Total 0.6 mg/dL (0.2-1.3); Blood Urea Nitrogen 16 mg/dL (9-20); Calcium 8.5 mg/dL (8.4-10.2); Carbon Dioxide 26 mmol/L (22-30); Chloride 105 mmol/L (98-107); Estimated CRCL calculation 101 ml/min; Estimated Glomerular Filt Rate > 60; Glucose 97 mg/dL (65-110); Lipase 74 U/L (23-300); Sodium 136 mmol/L (137-145)
--- NOTE | 2022-11-15 04:47 | PC.NURSE ---
pt. to ct
[2022-11-15 04:50] VITALS: BP 116/77; PULSE 53; RESP 14; O2SAT 99
[2022-11-15 06:00] VITALS: BP 130/74; PULSE 80; RESP 19; O2SAT 99
== END 2022-11-15 06:00 | disposition home or self-care (01) ==
PROVIDERS: Emergency Provider Emergency Medicine; PCP Emergency Medicine
DX: K92.0 Hematemesis (principal); J45.909 Unspecified asthma, uncomplicated; K21.9 Gastro-esophageal reflux disease without esophagitis; Z21 Asymptomatic human immunodeficiency virus [HIV] infection status; Z79.899 Other long term (current) drug therapy
CPT/HCPCS: 36415; 74177; 80053; 83690; 85025; 96374; 96375; 99284; C9113; J2405; Q9967

== ENCOUNTER 2022-11-20 09:10 | Emergency (ER) | payer OTHER, SELFPAY ==
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
[2022-11-20] MEDS: ACETAMINOPHEN 500 MG TABLET 1000 MG PO (09:30)
[2022-11-20 09:32] VITALS: BP 116/68; PULSE 72; RESP 16; TEMP 36.8; O2SAT 100
== END 2022-11-20 10:15 | disposition home or self-care (01) ==
PROVIDERS: Emergency Provider Preventive Medicine Aerospace Medicine; PCP Emergency Medicine
DX: K04.7 Periapical abscess without sinus (principal)
CPT/HCPCS: 99283; A9270

== ENCOUNTER 2023-02-12 03:46 | Emergency (ER) | payer MEDICAID, SELFPAY ==
--- NOTE | ~2023-02-12 | XR_ITS ---
EXAMINATION: XR chest 2V DATE: 02/12/2023 04:36 INDICATION: Chills. Cough. TECHNIQUE: Frontal and lateral views of the chest were obtained. COMPARISON: Chest single view 01/13/2020, CT abdomen and pelvis 11/15/2022 FINDINGS: The chest demonstrates clear lungs without pneumonia, pleural effusion, or pneumothorax. Th e heart size is normal. There is mild chronic anterior wedging of lower thoracic vertebral bodies. IMPRESSION: 1. No acute cardiopulmonary disease. Reviewed, dictated and finalized at location E.
[2023-02-12 03:48] VITALS: BP 122/65; PULSE 82; RESP 15; TEMP 36.3; O2SAT 99
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
[2023-02-12] MEDS: SODIUM CHLORIDE 0.9% IV 1,000 ML 999 ML IV CONT (04:16)
[2023-02-12] MEDS: ONDANSETRON INJ 4 MG/2 ML VIAL IV PUSH (04:16)
[2023-02-12] MEDS: KETOROLAC 30 MG/ML VIAL (*BKC) 15 MG IV PUSH (04:16)
[2023-02-12 04:17] LABS: Basophils Percent Auto 0.4 % (0.2-1.2); Eosinophils Absolute Auto 0.3 K/mm3 (0-0.3); Eosinophils Percent Auto 4.1 % (0-4.4); Hematocrit 40.4 % (42.0-52.0); Hemoglobin 13.2 g/dL (14.0-18.0); Immature Granulocyte Absolute 0.02 K/mm3 (0.00-0.031); Immature Granulocyte Percent A 0.3 % (0-0.5); Lymphocytes Absolute Auto 1.65 K/mm3 (0.9-3.2); Lymphocytes Percent Auto 23.3 % (18.3-44.2); Mean Corpuscular HGB Conc 32.7 g/dl (32-36); Mean Corpuscular Hemoglobin 28.1 pg (26-34); Mean Corpuscular Volume 86.1 fl (80-100); Mean Platelet Volume 10.4 fl (7.4-10.4); Monocytes Absolute Auto 0.6 K/mm3 (0.1-0.6); Monocytes Percent Auto 7.8 % (2.6-8.5); Neutrophils Absolute Auto 4.5 K/mm3 (1.3-6.7); Neutrophils Percent Auto 64.1 % (45.5-73.1); Platelet Count Result 200 k/mm3 (150-375); Red Blood Count 4.69 M/mm3 (4.6-6.20); Red Cell Distribution Width 13.9 % (11.5-14.5); White Blood Count 7.1 K/mm3 (4.5-10.0)
[2023-02-12 04:28] LABS: Alanine Aminotransferase 50 U/L (6-50); Albumin Level 4.6 g/dL (3.5-5.1); Alkaline Phosphatase 130 U/L (38-126); Anion Gap 8 mmol/L (8-16); Aspartate Amino Transferase 42 U/L (17-59); Bilirubin,Total 0.8 mg/dL (0.2-1.3); Blood Urea Nitrogen 15 mg/dL (9-20); Calcium 9.2 mg/dL (8.4-10.2); Carbon Dioxide 25 mmol/L (22-30); Chloride 106 mmol/L (98-107); Estimated CRCL calculation 110 ml/min; Estimated Glomerular Filt Rate > 60; Glucose 94 mg/dL (65-110); Potassium 3.9 mmol/L (3.4-5.0); Sodium 139 mmol/L (137-145)
[2023-02-12 04:30] LABS: CRP 0.8 mg/dL (<1.0)
[2023-02-12 04:34] LABS: Lipase 68 U/L (23-300)
[2023-02-12 05:07] VITALS: BP 117/78; PULSE 78; RESP 14; O2SAT 97
[2023-02-12 05:09] LABS: Influenza A QL RT-PCR Negative (Negative); Influenza B QL RT-PCR Negative (Negative); RSV RNA, RT-PCR Negative (Negative); SARS-CoV-2 RNA PCR Negative (Negative)
[2023-02-12 05:50] VITALS: BP 130/74; PULSE 80; RESP 19; O2SAT 99
== END 2023-02-12 05:50 | disposition home or self-care (01) ==
PROVIDERS: Emergency Provider Student in an Organized Health Care Education/Training Program
DX: B34.9 Viral infection, unspecified (principal); R51.9 Headache, unspecified; R11.10 Vomiting, unspecified; J45.909 Unspecified asthma, uncomplicated; Z20.822 Contact with and (suspected) exposure to COVID-19; K21.9 Gastro-esophageal reflux disease without esophagitis; Z21 Asymptomatic human immunodeficiency virus [HIV] infection status; Z79.899 Other long term (current) drug therapy
CPT/HCPCS: 36415; 71046; 80053; 83690; 85025; 86140; 87637; 96361; 96374; 96375; 99284; J1885; J2405; J7030

== ENCOUNTER 2023-03-05 16:43 | Emergency (ER) | payer MEDICAID, SELFPAY ==
--- NOTE | ~2023-03-05 | XR_ITS ---
XR knee RT min 4V DATE: 03/05/2023 17:19 INDICATION: Fall on to right knee. Pain and limited range of motion TECHNIQUE: 4 views including crosstable lateral COMPARISON: 04/25/2022 right knee FINDINGS: No fracture or dislocation or joint effusion. Joint spaces are well preserved. No radiopaqu e intra-articular loose body or chondrocalcinosis. No periosteal reaction or bone destruction. IMPRESSION: Normal Reviewed, dictated and finalized at location A. IT ASSISTANT IMPRESSION: Normal
[2023-03-05 17:02] VITALS: BP 125/73; PULSE 71; RESP 20; TEMP 36.8; O2SAT 100
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
[2023-03-05] MEDS: AMOXICILLIN/CLAVULANATE K 875-125 MG TAB 1 TABLET PO (18:21)
== END 2023-03-05 18:35 | disposition home or self-care (01) ==
PROVIDERS: Emergency Provider Emergency Medicine; PCP Emergency Medicine
DX: S80.01XA Contusion of right knee, initial encounter (principal); S61.452A Open bite of left hand, initial encounter; J45.909 Unspecified asthma, uncomplicated; K21.9 Gastro-esophageal reflux disease without esophagitis; Y04.1XXA Assault by human bite, initial encounter; Y04.2XXA Assault by strike against or bumped into by another person, initial encounter
CPT/HCPCS: 73564; 99283; A9270

== ENCOUNTER 2023-03-07 17:37 | Emergency (ER) | payer MEDICAID, SELFPAY ==
[2023-03-07 17:40] VITALS: BP 133/83; PULSE 93; RESP 14; TEMP 36.4; O2SAT 100
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
[2023-03-07] MEDS: ACETAMINOPHEN 500 MG TABLET 1000 MG PO (18:25)
[2023-03-07] MEDS: LIDOCAINE 5% PATCH 1 PATCH TRANSDERM (18:25)
[2023-03-07] MEDS: IBUPROFEN 400 MG TABLET 800 MG PO (18:26)
== END 2023-03-07 18:34 | disposition home or self-care (01) ==
PROVIDERS: Emergency Provider Physician Assistant; PCP Emergency Medicine
DX: S80.01XD Contusion of right knee, subsequent encounter (principal); J45.909 Unspecified asthma, uncomplicated; K21.9 Gastro-esophageal reflux disease without esophagitis; Y04.8XXD Assault by other bodily force, subsequent encounter
CPT/HCPCS: 99283; A9270

== ENCOUNTER 2023-03-20 11:51 | Emergency (ER) | payer MEDICAID, SELFPAY ==
--- NOTE | ~2023-03-20 | XR_ITS ---
EXAMINATION: XR chest 2V DATE: 03/20/2023 13:18 INDICATION: Cough TECHNIQUE: AP and lateral views of the chest are obtained. COMPARISON: 02/12/2023 FINDINGS: The lungs are free of acute opacities. No pleural effusion or pneumothorax. The cardiomedia stinal silhouette is normal. Mild chronic anterior wedging is noted in lower thoracic vertebral sathya s. The visualized bones and soft tissues are otherwise unremarkable. IMPRESSION: 1. No acute cardiopulmonary abnormality. Reviewed, dictated and finalized at location A. ING SUPERVISOR
[2023-03-20 11:55] VITALS: BP 116/65; PULSE 65; RESP 16; TEMP 36.5; O2SAT 100
[2023-03-20] MEDS: ONDANSETRON HCL ODT 4 MG TABLET PO (13:11)
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
[2023-03-20 14:20] VITALS: BP 112/70; PULSE 72; RESP 16; O2SAT 100
== END 2023-03-20 14:22 | disposition home or self-care (01) ==
PROVIDERS: Emergency Provider Preventive Medicine Aerospace Medicine; PCP Emergency Medicine
DX: J06.9 Acute upper respiratory infection, unspecified (principal); S83.91XA Sprain of unspecified site of right knee, initial encounter; X58.XXXA Exposure to other specified factors, initial encounter
CPT/HCPCS: 71046; 99283; A9270

== ENCOUNTER 2023-03-27 16:37 | Emergency (ER) | payer MEDICAID, SELFPAY ==
--- NOTE | ~2023-03-27 | XR_ITS ---
EXAMINATION: XR chest 1V portable Exam Date/Time: 03/27/2023 17:15 MULTIPLE CUT OFF SAW OPERATOR HISTORY: productive cough, WITH CONGESTION, AND CHILLS Comparison: 03/20/2023. RESULT: Lines, tubes, and devices: None. Lungs and pleura: Clear. Cardiomediastinal silhouette: Stable. Other: No acute osseous or upper abdominal finding. IMPRESSION: No acute cardiopulmonary process. Reviewed, dictated and finalized at location K. IPLE CUT OFF SAW OPERATOR
[2023-03-27 16:38] VITALS: BP 111/92; PULSE 70; RESP 20; TEMP 36.3; O2SAT 100
[2023-03-27 16:48] VITALS: O2SAT 98
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
[2023-03-27 17:37] LABS: Strep Group A RT-PCR DETECTED (Negative)
[2023-03-27 17:49] LABS: Influenza A QL RT-PCR Negative (Negative); Influenza B QL RT-PCR Negative (Negative); RSV RNA, RT-PCR Negative (Negative); SARS-CoV-2 RNA PCR Positive (Negative)
== END 2023-03-27 17:45 | disposition home or self-care (01) ==
PROVIDERS: Emergency Provider Physician Assistant
DX: U07.1 COVID-19 (principal); J45.909 Unspecified asthma, uncomplicated; K21.9 Gastro-esophageal reflux disease without esophagitis; Z21 Asymptomatic human immunodeficiency virus [HIV] infection status; Z79.899 Other long term (current) drug therapy; J06.9 Acute upper respiratory infection, unspecified
CPT/HCPCS: 71045; 87637; 87651; 99283

== ENCOUNTER 2023-04-04 12:56 | Emergency (ER) | payer MEDICAID, SELFPAY ==
[2023-04-04 13:17] VITALS: BP 126/85; PULSE 60; RESP 15; TEMP 36.2; O2SAT 100
[2023-04-04 13:33] LABS: Basophils Percent Auto 0.5 % (0.2-1.2); Eosinophils Absolute Auto 0.1 K/mm3 (0-0.3); Hematocrit 39.9 % (42.0-52.0); Immature Granulocyte Absolute 0.02 K/mm3 (0.00-0.031); Immature Granulocyte Percent A 0.3 % (0-0.5); Lymphocytes Absolute Auto 1.99 K/mm3 (0.9-3.2); Lymphocytes Percent Auto 30.2 % (18.3-44.2); Mean Corpuscular HGB Conc 32.6 g/dl (32-36); Mean Corpuscular Hemoglobin 28.3 pg (26-34); Mean Corpuscular Volume 86.9 fl (80-100); Mean Platelet Volume 10.5 fl (7.4-10.4); Monocytes Absolute Auto 0.6 K/mm3 (0.1-0.6); Monocytes Percent Auto 8.5 % (2.6-8.5); Neutrophils Absolute Auto 3.9 K/mm3 (1.3-6.7); Neutrophils Percent Auto 58.5 % (45.5-73.1); Platelet Count Result 240 k/mm3 (150-375); Red Blood Count 4.59 M/mm3 (4.6-6.20); Red Cell Distribution Width 13.7 % (11.5-14.5); White Blood Count 6.6 K/mm3 (4.5-10.0)
[2023-04-04 13:45] LABS: Appearance Urine Clear (Clear); Bilirubin Urine Negative (Negative); Blood Urine Negative (Negative); Color Urine Yellow (Yellow); Glucose Urine UA Negative (Negative); Ketones Urine Negative (Negative); Leukocyte Esterase Ur Negative LEU/UL (Negative); Nitrate Urine Negative (Negative); Protein Urine Negative (Negative)
[2023-04-04 13:46] LABS: Alanine Aminotransferase 55 U/L (6-50); Albumin Level 4.5 g/dL (3.5-5.1); Alkaline Phosphatase 115 U/L (38-126); Anion Gap 9 mmol/L (8-16); Aspartate Amino Transferase 51 U/L (17-59); Bilirubin,Total 0.8 mg/dL (0.2-1.3); Blood Urea Nitrogen 15 mg/dL (9-20); Calcium 9.2 mg/dL (8.4-10.2); Carbon Dioxide 23 mmol/L (22-30); Chloride 107 mmol/L (98-107); Estimated CRCL calculation 127 ml/min; Estimated Glomerular Filt Rate > 60; Glucose 108 mg/dL (65-110); Lipase 90 U/L (23-300); Potassium 3.9 mmol/L (3.4-5.0); Sodium 139 mmol/L (137-145)
[2023-04-04 13:47] LABS: Add Urine Microscopic? NO
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
[2023-04-04] MEDS: IBUPROFEN 600 MG TABLET PO (14:46)
[2023-04-04] MEDS: hydrOXYzine HCL 25 MG TABLET PO (14:46)
[2023-04-04] MEDS: LIDOCAINE 5% PATCH 1 PATCH TRANSDERM (14:46)
== END 2023-04-04 14:50 | disposition home or self-care (01) ==
PROVIDERS: Emergency Medicine; Emergency Provider Nurse Practitioner
DX: T50.905A Adverse effect of unspecified drugs, medicaments and biological substances, initial encounter (principal); M54.50 Low back pain, unspecified; Z21 Asymptomatic human immunodeficiency virus [HIV] infection status
CPT/HCPCS: 36415; 80053; 81003; 83690; 85025; 99283; A9270

== ENCOUNTER 2025-03-03 09:09 | Emergency (ER) | payer SELFPAY ==
--- NOTE | ~2025-03-03 | CT_ITS ---
CT ABDOMEN AND PELVIS WITHOUT CONTRAST Clinical History: LLQ/Flank pain Comparison: CT abdomen and pelvis 11/15/2022 Technique: Unenhanced axial images lung bases to symphysis pubis Coronal, sagittal reformats CT images acquired with automatic exposure control for dose reduction DLP: 300 mGy-cm Findings: Without intravenous contrast, sensitivity for detecting visceral parenchymal abnormalities decreased. Lung bases: Clear. Visualized heart and pericardium: Unremarkable. Liver: Unremarkable. Gallbladder: Unremarkable. Spleen: Unremarkable. Pancreas: Unremarkable. Adrenal glands: Unremarkable. Kidneys: Right kidney- No hydronephrosis. No renal stones. Left kidney- No hydronephrosis. No renal stones. Distal esophagus/stomach: Unremarkable. Small bowel loops: Normal caliber and wall thickness. Colon: Normal caliber and wall thickness. Normal RLQ appendix. Nodes: No enlarged nodes. Peritoneum: No ascites. No free intraperitoneal air. Urinary bladder: Unremarkable. Prostate: Unremarkable. Bones: No acute bony abnormality. Soft tissues: Unremarkable. Unopacified abdominal aorta: No aneurysmal dilatation. IMPRESSION: 1. No acute findings. Reviewed, dictated and finalized at location R. 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 No acute findings.
--- OUTSIDE RECORDS SUMMARY | 2025-03-03 09:12 | XMS_ITS | Clinical Summary ---
Author Organization [facility] Address [address] [place] [address] Care Team Providers Care Floor Surfacer Name Role Phone Raúl Daugherty MD Primary Care Provider [phone] Source Comments [facility],non-owned Affiliates and Associated Physician Practices is amultiple site organization consisting of ambulatory clinics and hospital sitesin [place], [place], [place] and [place]. This disclosure is being madepursuant to the Care Everywhere program and may not contain all information available regarding this patient. Last updated 17.[facility] [place] Allergies No known active allergies Medications * Be aware that medications may not be up to date on this document. Alwaysverify current medications with the patient. amphetamine-dextroam phetamine (Adderall) 20 MG tablet Take 20 mg by mouth every morning. Active ALBUTEROL IN Inhale by mouth as needed. Active albuterol (PROVENTIL;VENTOLIN) (5 MG/ML) 0.5% nebulizer solution Inhale 2.5 mg by mouth 4 times daily as needed. Active acetaminophen (TYLENOL) 160 MG/5ML SOLN solution Take 18 mL by mouth every 4 hours as needed for Fever or Pain. 480 mL 2 10/21/19 11 Active Additional Information Patient not taking.Reported on 01/07/2022 chlorhexidine (PERIDEX) 0.12 % solution Swish and spit 15 mL 2 times daily. 480 mL 1 10/21/19 11 Active Additional Information Patient not taking.Reported on 01/07/2022 ID Now COVID-19 KIT [place] 1 kit into the nose 1 (one) time 04/20/19 22 Active bacitracin-polymyxin -neomycin-hc (Cortisporin) 1 % ophthalmic ointmentIndications: Hordeolum externum of left upper eyelid Instill into both eyes 3 times daily 1 g 01/08/20 22 Active Additional Information Patient not taking.Reported on 04/23/2022 Biktarvy 50-200-25 MGIndications:Human immunodeficiency virus (HIV) disease (HCC),On HAART (highly active antiretroviral) therapy,Encounter for long-term (current) use of medications TAKE 1 TABLET BY MOUTH EVERY DAY 30 tablet 3 06/18/19 24 Active Active Problems Problem Noted Date Diagnosed Date Rash and other nonspecific skin eruption 022 Scar condition and fibrosis of skin 09/25/2010 Overview (09/25/2010): Scar on lip Immunizations Immunization Administration Dates Next Due DTaP VACCINE IM (6wk-6yrs) 11/15/2006,,08/23/2002,04/19,01/24/2002 HEP A/HEP B 04/23/2022 HEP B VACCINE, PED/ADOL 10/26/2002 HIB Hep B 04/19/2002,01/24/2002 HIB VACCINE 12/18/2002,08/23/2002 Human Papilloma Virus Nineva lent Vaccine 10/30/2020,06/25/2020,04/27/2020 INFLUENZA VACCINE 02/29/2008 BLADE VACCINE QUAD LAIV4 PF NASAL 01/15/2014 MENINGOCOCCAL ACWY (MCV4P) VAC IM 11/03/2018 MENINGOCOCCAL ACWY MENVEO 11/21/2012 MMR VACCINE 12/18/2002 Meningococcal ACWY (Menquadfi) Vac IM 04/23/2022 ,01/07/2022 PNEUMOCOCCAL PCV20 CONJ VAC IM 01/07/2022 PNEUMOCOCCAL PCV7 CONJ, PEDS 12/18/2002, 10/26/2002,08/23/2002,04/19 PNEUMOCOCCAL PPSV23 04/23/2022 POLIO IPV 11/15/2006, 3,04/19/2002,01/24 TDAP, HISTORIC VACCINE 11/28/2018,11/21/2012 VARICELLA 11/11/2015,03/19/2003 Family History Relation Name Status Comments Brother Alive Father Alive Maternal Grandmother Alive Mother Alive Sister Alive Social History Tobacco Use Types Packs/Day Years Used Date Smoking Tobacco: Never Smokeless Tobacco: Never Tobacco Cessation:Counseling Given: Not Answered Alcohol Use Standard Drinks/Week Comments Never 0 (1 standard drink = 0.6 oz pur e alcohol) AUDIT-C Answer Date Recorded Q1: How often do you have a drink containing alc ohol? Never 01/13/2022 Average Number of Drinks Not on file 022 Frequency of Binge Drinking Not on file 07/2021 PHQ-2 Answer Date Recorded PHQ2 TOTAL SCORE 0 04/23/2022 Sex and Gender Information Value Date Recorded Sex Assigned at Not on file Legal Sex Male 5:41 AM ACUTE CARE NURSE Gender Identity Not on file Sexual Orientation Not on file Last Filed Vital Signs Vital Sign Reading Time Taken Comments Blood Pressure 122/80 04/23/2022 10:46 AM ACUTE CARE NURSE Pulse 83 04/23/2022 10:46 AM ACUTE CARE NURSE Temperature 35.6 C (96.1 F) 04/23/2022 10:46 AM ACUTE CARE NURSE Respiratory Rate 18 04/23/2022 10:46 AM ACUTE CARE NURSE Oxygen Saturation 98% 04/23/2022 10:46 AM ACUTE CARE NURSE Inhaled Oxygen Concentration - - Weight 81 kg (178 lb 8 oz) 04/23/2022 10:[address] Height 175.3 cm (5' 9) 01/07/2022 9:27 AM CDT Body Mass Index 26.36 01/07/2022 9:27 AM CDT Plan of Treatment Health Maintenance Due Date Last Done Comments COVID-19 VACCINE (#1) 2006 MENINGOCOCCAL (Group B) VACC INE SHARED DECISION-MAKING (1 of 2 - Standard) 2017 ZOSTER VACCINE (1 of 2) 2020 HEPATITIS A VACCINE (2 of 2 - Risk 2-dose series) 10/21/2022 04/23/2022 DEPRESSION SCREENING 04/12/2024 04/23/2022, 01/08/20 INFLUENZA VACCINE (#1) 2024 01/15/2014, 2007 MENINGOCOCCAL GROUPS A/C/Y/W VACCINE (3 - Risk 2-dose series) 04/23/2027 04/23/2022, , 11/03/2018, Additional history exists DTAP/TDAP/TD VACCINES (8 - T d or Tdap) 11/28/2028 11/28/2018, 11/21/2012, 11/15/2006, Additional history exists HIB VACCINE Completed 12/18/2002, 08/10, 04/19/2002, Additional history exists HPV VACCINE Completed 10/30/2020, 06/10, 04/27/2020 HEPATITIS C SCREENING Completed 01/07/2022 HEPATITIS B VACCINE Completed 04/23/2022, 10/26/2002, 04/19/2002, Additional history exists PNEUMOCOCCAL VACCINE Completed 04/23/2022, 01/07/2022, 12/18/2002, Additional history exists HIV SCREENING Completed 06/15/2023, 08/2023, 04/23/2022, Additional history exists Procedures Procedure Name Priority Date/Time Associated Diagnosis Comments HIV-1 HIV-2 ANTIBODY + HIV P24 AG PANEL STAT 01/13/2022 2:46 PM CDT HEPATITIS C AB W/RFLX TO HCV RNA QN PCR Routine 01/07/2022 10:27 AM CDT HIV infection, asymptomatic Preventative health care from Last 3 Months or Most Recently Relevant to Health Maintenance Results * (ABNORMAL) HIV-1 HIV-2 ANTIBODY + HIV P24 AG PANEL (01/13/2022 2:46 PM CDT) HIV Antigen/Antibody 1 & 2 Reactive( A) Non-react aidan 01/13/2022 4:37 PM CDT [facility] Comment: HIV-1/HIV-2 Antibody + Antigen screening test is reactive, but is NOT DIAGNOSTIC. HIV-1/HIV-2 AB Differentiation assay, a supplemental test, will be performed. If HIV-1/HIV-2 Differentiation testing is negative, RNA testing will be performed. See separate reports. Blood BLOOD SPECIMEN / Unknown Venipuncture / Unknown 01/13/2022 2:46 PM CDT 01/13/2022 2:51 PM CDT Gregg Koenig MD LAB - CHEMISTRY ORDERABLES Fi nal Result Performing Organization Address City/[facility]/ZIP Co de Phone Number [address] [address], [facility] [phone] * Hep C Antibody with reflex ([employer]) (01/07/2022 10:27 AM CDT) Hepatitis C Antibody NON-REACTI VE NON-REACT [facility] Signal to Cut-Off 0.11 <1.00 [facility] Comment: HCV antibody was non-reactive. There is no laboratory evidence of HCV infection. In most cases, no further action is required. However, if recent HCV exposure is suspected, a test for HCV RNA (test code 67692) is suggested. For additional information please refer to http://education.Codeanywhere/faq/JXR26e4 (This link is being provided for informational/ educational purposes only.) Test Performed at: [email or web address] [address] [place] [address] ADAMA OH DO,MPH Blood BLOOD SPECIMEN / Unknown 01/07/2022 10:27 AM CDT 01/09/2022 5:13 AM CDT us Nolvia Owen NET WEB APPLICATION DEVELOPER-PURCHASE PRICE ANALYST LAB - CHEMISTRY ORDERAB LES Final Result Performing Organization Address City/[facility]/ZIP Co de Phone Number [facility] [address] [place] [address] from Last 3 Months or Most Recently Relevant to Health Maintenance Additional Health Concerns Infection Onset Date Last Indicated Mpox 01/13/2022 01/13/2022 Insurance [facility] Care Teams Floor Surfacer Relationship Specialty Start Date End Date Raúl Daugherty MD [address] [place] [id number] PCP - General 09/26/10
[2025-03-03 09:18] VITALS: BP 148/76; PULSE 75; RESP 16; TEMP 36.9; O2SAT 100
[2025-03-03 09:35] LABS: Hematocrit 40.7 % (42.0-52.0); Hemoglobin 14.2 g/dL (14.0-18.0); Immature Granulocyte Percent A 0.2 % (0-0.5); Lymphocytes Absolute Auto 2.43 K/mm3 (0.9-3.2); Mean Corpuscular HGB Conc 34.9 g/dl (32-36); Mean Corpuscular Hemoglobin 29.0 pg (26-34); Mean Corpuscular Volume 83.1 fl (80-100); Nucleated Red Blood Cells Absolute Auto 0.000 K/mm3 (0.0-0.012); Nucleated Red Blood Cells Perc 0.0 % (0.0-0.2); Platelet Count Result 268 k/mm3 (150-375); Red Blood Count 4.90 M/mm3 (4.6-6.20); White Blood Count 5.9 K/mm3 (4.5-10.0)
--- OUTSIDE RECORDS SUMMARY | 2025-03-03 09:50 | XMS_ITS | Clinical Summary ---
Author Organization [facility] Address [address] [place] [address] Care Team Providers Care Relations Coordinator Name Role Phone Nolvia Owen Primary Care Provider [phone] Adam Leonard MD Unavailable Allergies No known active allergies Medications naproxen (NAPROSYN) 500 mg tablet Take 1 tablet (500 mg total) by mouth 2 (two) times a day with meals 30 tablet 11/27/2022 Active Social History Tobacco Use Types Packs/Day Years Used Date Smoking Tobacco: Never Assessed Personal Safety Answer Date Recorded Have you ever been in or are you currently in a harmful physical or emotional relationship or is someone making you feel afraid or unsafe? 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 Gender Identity Male 11/27/2022 11:36 AM CDT Sexual Orientation Not on file Last Filed Vital Signs Vital Sign Reading Time Taken Comments Blood Pressure 111/82 06/25/2023 3:30 AM CDT Pulse 79 06/25/2023 3:30 AM CDT Temperature 36.7 C (98.1 F) 06/24/2023 11:46 PM CDT Respiratory Rate 17 06/25/2023 3:30 AM CDT Oxygen Saturation 99% 06/25/2023 3:30 AM CDT Inhaled Oxygen Concentration - - Weight 77.1 kg (170 lb) 06/24/2023 11:46 PM CDT Height 172.7 cm (5' 8) 11/27/2022 11:22 AM CDT Body Mass Index 25.85 11/27/2022 11:22 AM CDT Plan of Treatment Health Maintenance Due Date Last Done Comments Depression Screening 2001 HLA B 5701 Typing 2001 Proteinuria screening Urinalysis (UA) 2001 T Spot (quantiferon gold) 2001 HIV+ Chlamydia and Gonorrhea Screening (Rectal) 2012 HIV + Chlamydia and Gonorrhe a Screening (Urine) 2014 HIV+ Chlamydia and Gonorrhea Screening (Throat) 2014 Hepatitis C Screening 2014 RPR Screening 2014 Meningococcal B Vaccine (1 o f 2 - Standard) 2017 Hemoglobin A1C 12/10/2019 Regular Well Visit/Exam 18-64 12/10/2019 Zoster Vaccine (1 of 2) 2020 Hepatitis A Vaccines (2 of 3 - Hep A Twinrix risk 3-dose series) 05/21/2022 04/23/2022 Lipid Panel 01/07/2023 01/07/2022 Influenza Vaccine (#1) 2024 01/15/2014, 2007 DTaP/Tdap/Td Vaccine (8 - Td or Tdap) 11/28/2028 11/28/2018, 11/21/2012, 11/15/2006, Additional history exists Varicella Vaccines Completed 11/11/2015, 03/19/2003 HPV Vaccines Completed 10/30/2020, 06/10, 04/27/2020 G6PD Completed 01/07/2022 Hepatitis B Vaccines Completed 04/23/2022, 10/26/2002, 04/19/2002, Additional history exists Pneumococcal vaccine <65 Completed 023, 01/07/2022, 12/18/2002, Additional history exists Insurance [facility] Care Teams Relations Coordinator Relationship Specialty Start Date End Date Lexie, Nolvia Davis PCP - General Global Director [employer] Climate [employer] 06/25/23 Adam Leonard MD Emergency Medicine 06/25/23
--- OUTSIDE RECORDS SUMMARY | 2025-03-03 09:50 | XMS_ITS | Data Portability ---
Author Organization [facility]ribe Address [address] [facility] [place] [address] Assessment No assessment recorded. Plan of Treatment Reminders Order Date Submit Date Provider Last Modified By Organization Details Last Modified Time Details Appointments ANY 2025 09:00A Ryan Dong MD Not available Not available Not available Lab HIV-1 RNA, quantitat aidan, PCR, serum or plasma 2024 [facility], [address], [place], [address], 01/12/2025 06:22:14 cd4 T-cells, blood 2024 025 [facility], [address] [facility], [address], [place], [address], 01/11/2025 20:10:54 RPR (rapid plasma reagin), serum 2024 025 [facility], [address] [facility] [address], [address], [place], [address], 01/11/2025 20:10:55 chlamydia trachomat is + neisseria gonorrhoe ae + trichomon as vaginalis rRNA panel, CHRISSY+probe 2024 025 [facility], [address] [facility] [address], [address], [place], [address], 01/11/2025 20:10:51 Mycobacte rium tuberculo sis stimulate d gamma interfero n, qual, blood 2024 025 [facility], [address], [address], [place], [address], 01/12/2025 19:09:58 drug screen, urine 2024 025 [facility], [address], [place], [address], 01/17/2025 17:11:33 lipid panel, serum 2024 025 [facility], [address] [facility] [address], [address], [place], [address], 01/11/2025 20:10:51 CBC w/ auto diff [facility], [address], [place], [address], 02/23/2025 11:18:42 hepatitis panel (A+B+C), acute, serum 2024 025 [facility], [address] [facility] [address], [address], [place], [address], 01/11/2025 20:10:50 urinalysi s complete, reflex culture 2024 025 [facility], [address], [address], [place], [address], 01/11/2025 20:10:53 CMP, serum or plasma 2024 025 [facility], [address] [facility] [address], [address], [place], [address], 01/11/2025 20:10:52 Referral cardiolog ist referral 2024 025 maría Muir MD, [address] [facility], [facility] [address], [place], [address], 01/18/2025 10:29:26 Procedures None recorded. Surgeries None recorded. Imaging None recorded. Medication Orders Biktarvy 50 mg-200 mg-25 mg tablet 2024 025 [id number], [address], [place], [place], [id number], 01/10/2025 11:16:04 Patient TargetsNo targets recorded. 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 Not Available [facility] ([facility]) [address] [facility], [place], [address], 01/11/2025 20:10:49 01/11/2001/10/2025 HAV, HBV, HCV interpretati on COMMEN T HBV Serol ogy Inter preta tion Chart ----- ----- ----- ----- ----- ----- ----- ----- ----- ----- ----- ----- ----- -- Inter preta tion HBsAg anti- HBs anti- HBc anti- HBc IgM ----- ----- ----- ----- ----- ----- ----- ----- ----- ----- ----- ----- ----- -- Jimenez - Johanny te prese nt: + Johanny te absen t: - Test not indic ated: TNI ----- ----- ----- ----- ----- ----- ----- ----- ----- ----- ----- ----- ----- -- Susce ptibl e (neve r infec ashley and no evide nce - - - TNI of vacci natio n) ----- ----- ----- ----- ----- ----- ----- ----- ----- ----- ----- ----- ----- -- Immun e due to natbenito al resol jose elias infec tion - + + TNI ----- ----- ----- ----- ----- ----- ----- ----- ----- ----- ----- ----- ----- -- Immun e due to vacci natio n - + - TNI ----- ----- ----- ----- ----- ----- ----- ----- ----- ----- ----- ----- ----- -- Acute Infec tion + - + + ----- ----- ----- ----- ----- ----- ----- ----- ----- ----- ----- ----- ----- -- Chron ic infec tion + - + - ----- ----- ----- ----- ----- ----- ----- ----- ----- ----- ----- ----- ----- -- Inter preta tion uncle ar* - - + +/- ----- ----- ----- ----- ----- ----- ----- ----- ----- ----- ----- ----- ----- -- *Mult iple possi bilit ies: resol jose elias infec tion (most commo n); false - posit aidan anti- HBc ([facility] eptib le); low- level chron ic infec tion ; resol ving acute infec tion. Not Available [facility] ([facility]) [address] [facility], [place], [address], 01/11/2025 20:10:50 01/11/20 25 01/11/2025 HAV, HBV, HCV hep A Ab, total POSITI VE negati ve abnormal Comme nt: The HAV total antib christian assay detec ts both IgG and IgM but does not diffe renti ate betwe en them. A negat aidan resul t sugge sts susce ptibi lity to infec tion. A posit aidan resul t could be due to vacci natio n, previ ously resol jose elias infec tion or activ e infec tion. Testi ng for HAV IgM shoul d be perfo rmed if activ e HAV infec tion is suspe cted. [facility] offer s profi les that will autom atica lly refle x posit aidan HAV total antib christian resul ts to IgM (e.g. , panel #[id number] HAV Antib christian w/ Rfx). Not Available [facility] ([facility]) [address] [facility], [place], [address], 01/11/2025 20:10:50 01/11/20 25 01/11/2025 HAV, HBV, HCV HBsAg screen NEGATI VE negati ve Not Available [facility] ([facility]) [address] [facility], [place], [address], 01/11/2025 20:10:50 01/11/20 25 01/11/2025 HAV, HBV, HCV hep B surface Ab, qual REACTI VE Non React aidan: Not immun e to HBV infec tion. Anti- HBs undet ectab le or less than 10 mIU/m L. React aidan: Evide nce of HBV immun ity. Anti- HBs level s great er than 10 mIU/m L. Not Available [facility] ([facility]) [address] [facility], [place], [address], 01/11/2025 20:10:50 01/11/20 25 01/11/2025 HAV, HBV, HCV hep B core Ab, tot NEGATI VE negati ve Not Available [facility] ([facility]) [address] [facility], [place], [address], 01/11/2025 20:10:50 01/11/20 25 01/11/2025 HAV, HBV, HCV rfx to hbc IgM COMMEN T Refle x crite anna was not met. Not Available [facility] ([facility]) [address] [place], [address], 01/11/2025 20:10:50 01/11/20 25 01/11/2025 HAV, HBV, HCV HCV Ab NON REACTI VE nonrea ctive Not Available [facility] ([facility]) [address] [facility], [place], [address], 01/11/2025 20:10:50 01/11/20 25 01/11/2025 CT, NG, TRICH VAG BY CHIRSSY chlamydia by CHRISSY NEGATI VE negati ve Not Available [facility] ([facility]) [address] [place], [address], 01/11/2025 20:10:50 01/11/20 25 01/11/2025 CT, NG, TRICH VAG BY CHRISSY gonococcus by CHRISSY NEGATI VE negati ve Not Available [facility] ([facility]) [address] [place], [address], 01/11/2025 20:10:50 01/11/20 25 01/11/2025 CT, NG, TRICH VAG BY CHRISSY trich vag by CHRISSY NEGATI VE negati ve Not Available [facility] ([facility]) [address] [place], [address], 01/11/2025 20:10:50 01/11/20 25 01/11/2025 LIPID PANEL cholesterol, total 157 mg/dL 100-19 9 Not Available [facility] ([facility]) [address] [place], [address], 01/11/2025 20:10:51 01/11/20 25 01/11/2025 LIPID PANEL triglyceride s 61 mg/dL 0-149 Not Available [facility]) [address] [place], [address], 01/11/2025 20:10:51 01/11/20 25 01/11/2025 LIPID PANEL HDL cholesterol 39 mg/dL >39 below low normal Not Available [facility] ([facility]) [address] [place], [address], 01/11/2025 20:10:51 01/11/20 25 01/11/2025 LIPID PANEL VLDL cholesterol caryn 12 mg/dL 5-40 Not Available [facility]) [address] [place], [address], 01/11/2025 20:10:51 01/11/20 25 01/11/2025 LIPID PANEL LDL chol calc ([facility]) 106 mg/dL 0-99 above high normal Not Available [facility] ([facility]) [address] [facility], [place], [address], 01/11/2025 20:10:51 01/11/20 25 01/11/2025 MICRO SCOPI C EXAMI NATIO N WBC None seen /hpf 0-5 Not Available [facility] ([facility]) [address] [facility], [place], [address], 01/11/2025 20:10:52 01/11/20 25 01/11/2025 MICRO SCOPI C EXAMI NATIO N RBC None seen /hpf 0-2 Not Available [facility] ([facility]) [address] [facility], [place], [address], 01/11/2025 20:10:52 01/11/20 25 01/11/2025 MICRO SCOPI C EXAMI NATIO N epithelial cells (non renal) None seen /hpf 0-10 Not Available [facility] ([facility]) [address] [facility], [place], [address], 01/11/2025 20:10:52 01/11/20 25 01/11/2025 MICRO SCOPI C EXAMI NATIO N casts None seen /lpf nonese en Not Available [facility] ([facility]) [address] [facility], [place], [address], 01/11/2025 20:10:52 01/11/20 25 01/11/2025 MICRO SCOPI C EXAMI NATIO N bacteria None seen nonese en/few Not Available [facility] ([facility]) [address] [facility], [place], [address], 01/11/2025 20:10:52 01/11/20 25 01/11/2025 CMP14 +EGFR glucose 87 mg/dL 70-99 Not Available [facility] ([facility]) [address] [facility], [place], [address], 01/11/2025 20:10:52 01/11/20 25 01/11/2025 CMP14 +EGFR BUN 15 mg/dL 6-20 Not Available [facility] ([facility]) [address] [place], [address], 01/11/2025 20:10:52 01/11/20 25 01/11/2025 CMP14 +EGFR creatinine 1.15 mg/dL 0.76-1 .27 Not Available [facility] ([facility]) [address] [place], [address], 01/11/2025 20:10:52 01/11/20 25 01/11/2025 CMP14 +EGFR eGFR 92 mL/mi n/1.7 3 >59 Not Available [facility] ([facility]) [address] [place], [address], 01/11/2025 20:10:52 01/11/20 25 01/11/2025 CMP14 +EGFR BUN/creatini ne ratio 13 9-20 Not Available [facility] ([facility]) [address] [place], [address], 01/11/2025 20:10:52 01/11/20 25 01/11/2025 CMP14 +EGFR sodium 139 mmol/ L 134-14 4 Not Available [facility] ([facility]) [address] [place], [address], 01/11/2025 20:10:52 01/11/20 25 01/11/2025 CMP14 +EGFR potassium 4.5 mmol/ L 3.5-5. 2 Not Available [facility] ([facility]) [address] [place], [address], 01/11/2025 20:10:52 01/11/20 25 01/11/2025 CMP14 +EGFR chloride 105 mmol/ L 96-106 Not Available [facility] ([facility]) [address] [place], [address], 01/11/2025 20:10:52 01/11/2001/11/2025 CMP14 +EGFR carbon dioxide, total 23 mmol/ L 20- Not Available [facility] ([facility]) [address] [facility], [place], [address], 01/11/2025 20:10:52 01/11/2001/11/2025 CMP14 +EGFR calcium 9.5 mg/dL 8.7-10 .2 Not Available [facility] ([facility]) [address] [facility], [place], [address], 01/11/2025 20:10:52 01/11/2001/11/2025 CMP14 +EGFR protein, total 7.2 g/dL 6.0-8. 5 Not Available [facility] ([facility]) [address] [facility], [place], [address], 01/11/2025 20:10:52 01/11/20 25 01/11/2025 CMP14 +EGFR albumin 4.5 g/dL 4.3-5. 2 Not Available [facility] ([facility]) [address] [facility], [place], [address], 01/11/2025 20:10:52 01/11/20 25 01/11/2025 CMP14 +EGFR globulin, total 2.7 g/dL 1.5-4. 5 Not Available [facility] ([facility]) [address] [facility], [place], [address], 01/11/2025 20:10:52 01/11/2001/11/2025 CMP14 +EGFR bilirubin, total 0.7 mg/dL 0.0-1. 2 Not Available [facility] ([facility]) [address] [facility], [place], [address], 01/11/2025 20:10:52 01/11/20 25 01/11/2025 CMP14 +EGFR alkaline phosphatase 122 IU/L 47-123 Not Available [facility]) [address] [place], [address], 01/11/2025 20:10:52 01/11/20 25 01/11/2025 CMP14 +EGFR AST (SGOT) 24 IU/L 0-40 Not Available [facility] ([facility]) [address] [facility], [place], [address], 01/11/2025 20:10:52 01/11/20 25 01/11/2025 CMP14 +EGFR ALT (SGPT) 23 IU/L 0-44 Not Available [facility] ([facility]) [address] [place], [address], 01/11/2025 20:10:52 01/11/20 25 01/11/2025 UA/M W/RFL X CULTU RE, ROUTI NE specific gravity 1.009 1.005- 1.030 Not Available [facility] ([facility]) [address] [place], [address], 01/11/2025 20:10:53 01/11/20 25 01/11/2025 UA/M W/RFL X CULTU RE, ROUTI NE pH 7.0 5.0-7. 5 Not Available [facility] ([facility]) [address] [place], [address], 01/11/2025 20:10:53 01/11/20 25 01/11/2025 UA/M W/RFL X CULTU RE, ROUTI NE urine-color YELLOW yellow Not Available [facility] ([facility]) [address] [place], [address], 01/11/2025 20:10:53 01/11/20 25 01/11/2025 UA/M W/RFL X CULTU RE, ROUTI NE appearance CLEAR clear Not Available [facility] ([facility]) [address] [place], [address], 01/11/2025 20:10:53 01/11/20 25 01/11/2025 UA/M W/RFL X CULTU RE, ROUTI NE WBC esterase NEGATI VE negati ve Not Available [facility] ([facility]) [address] [facility], [place], [address], 01/11/2025 20:10:53 01/11/20 25 01/11/2025 UA/M W/RFL X CULTU RE, ROUTI NE protein NEGATI VE negati ve/tra ce Not Available [facility] ([facility]) [address] [facility], [place], [address], 01/11/2025 20:10:53 01/11/20 25 01/11/2025 UA/M W/RFL X CULTU RE, ROUTI NE glucose NEGATI VE negati ve Not Available [facility] ([facility]) [address] [facility], [place], [address], 01/11/2025 20:10:53 01/11/20 25 01/11/2025 UA/M W/RFL X CULTU RE, ROUTI NE ketones NEGATI VE negati ve Not Available [facility] ([facility]) [address] [facility], [place], [address], 01/11/2025 20:10:53 01/11/20 25 01/11/2025 UA/M W/RFL X CULTU RE, ROUTI NE occult blood NEGATI VE negati ve Not Available [facility] ([facility]) [address] [place], [address], 01/11/2025 20:10:53 01/11/20 25 01/11/2025 UA/M W/RFL X CULTU RE, ROUTI NE bilirubin NEGATI VE negati ve Not Available [facility] ([facility]) [address] [place], [address], 01/11/2025 20:10:53 01/11/20 25 01/11/2025 UA/M W/RFL X CULTU RE, ROUTI NE urobilinogen ,semi-qn 0.2 mg/dL 0.2-1. 0 Not Available [facility] ([facility]) [address] [facility], [place], [address], 01/11/2025 20:10:53 01/11/20 25 01/11/2025 UA/M W/RFL X CULTU RE, ROUTI NE nitrite, urine NEGATI VE negati ve Not Available [facility] ([facility]) [address] [facility], [place], [address], 01/11/2025 20:10:53 01/11/20 25 01/11/2025 UA/M W/RFL X CULTU RE, ROUTI NE microscopic examination COMMEN T Micro scopi c follo ws if indic ated. Not Available [facility] ([facility]) [address] [facility], [place], [address], 01/11/2025 20:10:53 01/11/20 25 01/11/2025 UA/M W/RFL X CULTU RE, ROUTI NE microscopic examination SEE BELOW: Micro scopi c was indic ated and was perfo rmed. Not Available [facility] ([facility]) [address] [facility], [place], [address], 01/11/2025 20:10:53 01/11/20 25 01/11/2025 UA/M W/RFL X CULTU RE, ROUTI NE urinalysis reflex COMMEN T This speci men will not refle x to a Urine Cultu re. Not Available [facility] ([facility]) [address] [facility], [place], [address], 01/11/2025 20:10:53 01/11/20 25 01/10/2025 HELPE R T-LYM PH-CD 4 WBC 4.9 x10e3 /uL 3.4-10 .8 Not Available [facility] ([facility]) [address] [facility], [place], [address], 01/11/2025 20:10:53 01/11/20 25 01/10/2025 HELPE R T-LYM PH-CD 4 RBC 4.65 x10e6 /uL 4.14-5 .80 Not Available [facility] ([facility]) [address] [facility], [place], [address], 01/11/2025 20:10:53 01/11/20 25 01/10/2025 HELPE R T-LYM PH-CD 4 hemoglobin 13.6 g/dL 13.0-1 7.7 Not Available [facility] ([facility]) [address] [facility], [place], [address], 01/11/2025 20:10:53 01/11/20 25 01/10/2025 HELPE R T-LYM PH-CD 4 hematocrit 41.7 % 37.5-5 1.0 Not Available [facility] ([facility]) [address] [facility], [place], [address], 01/11/2025 20:10:53 01/11/20 25 01/10/2025 HELPE R T-LYM PH-CD 4 MCV 90 fL 79-97 Not Available [facility] ([facility]) [address] [place], [address], 01/11/2025 20:10:53 01/11/20 25 01/10/2025 HELPE R T-LYM PH-CD 4 MCH 29.2 pg 26.6-3 3.0 Not Available [facility] ([facility]) [address] [place], [address], 01/11/2025 20:10:53 01/11/20 25 01/10/2025 HELPE R T-LYM PH-CD 4 MCHC 32.6 g/dL 31.5-3 5.7 Not Available [facility] ([facility]) [address] [facility], [place], [address], 01/11/2025 20:10:53 01/11/20 25 01/10/2025 HELPE R T-LYM PH-CD 4 RDW 13.6 % 11.6-1 5.4 Not Available [facility] ([facility]) [address] [facility], [place], [address], 01/11/2025 20:10:53 01/11/20 25 01/10/2025 HELPE R T-LYM PH-CD 4 platelets 234 x10e3 /uL 150-45 0 Not Available [facility] ([facility]) [address] [facility], [place], [address], 01/11/2025 20:10:53 01/11/20 25 01/10/2025 HELPE R T-LYM PH-CD 4 neutrophils 53 % notest ab. Not Available [facility] ([facility]) [address] [facility], [place], [address], 01/11/2025 20:10:53 01/11/20 25 01/10/2025 HELPE R T-LYM PH-CD 4 lymphs 36 % notest ab. Not Available [facility] ([facility]) [address] [facility], [place], [address], 01/11/2025 20:10:53 01/11/20 25 01/10/2025 HELPE R T-LYM PH-CD 4 monocytes 9 % notest ab. Not Available [facility] ([facility]) [address] [facility], [place], [address], 01/11/2025 20:10:53 01/11/20 25 01/10/2025 HELPE R T-LYM PH-CD 4 eos 1 % notest ab. Not Available [facility] ([facility]) [address] [facility], [place], [address], 01/11/2025 20:10:53 01/11/20 25 01/10/2025 HELPE R T-LYM PH-CD 4 basos 0 % notest ab. Not Available [facility] ([facility]) [address] [facility], [place], [address], 01/11/2025 20:10:53 01/11/20 25 01/10/2025 HELPE R T-[facility]M PH-CD 4 neutrophils (absolute) 2.6 x10e3 /uL 1.4-7. 0 Not Available [facility] ([facility]) [address] [facility], [place], [address], 01/11/2025 20:10:53 01/11/20 25 01/10/2025 HELPE R T-LYM PH-CD 4 lymphs (absolute) 1.8 x10e3 /uL 0.7-3. 1 Not Available [facility] ([facility]) [address] [facility], [place], [address], 01/11/2025 20:10:53 01/11/20 25 01/10/2025 HELPE R T-LYM PH-CD 4 monocytes(ab solute) 0.5 x10e3 /uL 0.1-0. 9 Not Available [facility] ([facility]) [address] [facility], [place], [address], 01/11/2025 20:10:53 01/11/20 25 01/10/2025 HELPE R T-LYM PH-CD 4 eos (absolute) 0.1 x10e3 /uL 0.0-0. 4 Not Available [facility] ([facility]) [address] [facility], [place], [address], 01/11/2025 20:10:53 01/11/20 25 01/10/2025 HELPE R T-LYM PH-CD 4 baso (absolute) 0.0 x10e3 /uL 0.0-0. 2 Not Available [facility] ([facility]) [address] [facility], [place], [address], 01/11/2025 20:10:53 01/11/20 25 01/10/2025 HELPE R T-LYM PH-CD 4 immature granulocytes 0 % notest ab. Not Available [facility] ([facility]) [address] [facility], [place], [address], 01/11/2025 20:10:53 01/11/20 25 01/10/2025 HELPE R T-LYM PH-CD 4 immature grans (abs) 0.0 x10e3 /uL 0.0-0. 1 Not Available [facility] ([facility]) [address] [facility], [place], [address], 01/11/2025 20:10:53 01/11/20 25 01/11/2025 HELPE R T-LYM PH-CD 4 absolute cd 4 helper 823 /uL 359-15 19 Not Available [facility] ([facility]) [address] [facility], [place], [address], 01/11/2025 20:10:53 01/11/20 25 01/11/2025 HELPE R T-LYM PH-CD 4 % cd 4 pos. lymph. 45.7 % 30.8-5 8.5 Not Available [facility] ([facility]) [address] [place], [address], 01/11/2025 20:10:53 01/11/20 25 01/11/2025 HEP A AB, IGM hep A Ab, IgM Negati ve negati ve A negat aidan anti- HAV IgM resul t sugge sts no recen t or curre nt HAV infec tion. Not Available [facility] ([facility]) [address] [place], [address], 01/11/2025 20:10:54 01/11/20 25 01/11/2025 RPR, RFX QN RPR/C ONFIR M TP RPR NON REACTI VE nonrea ctive Not Available [facility] ([facility]) [address] [place], [address], 01/11/2025 20:10:55 01/11/2001/11/2025 RNA, REAL TIME PCR (NON- GRAPH ) HIV-1 RNA by PCR <20 copie s/mL HIV-1 RNA detec ashley The repor table range for this assay is 20 to 10,00 0,000 copie s HIV-1 RNA/m L. Not Available [facility] ([facility]) [address] [facility], [place], [address], 01/12/2025 06:22:14 01/11/20 25 01/11/2025 RNA, REAL TIME PCR (NON- GRAPH ) log10 HIV-1 RNA TNP log10 copy/ mL Unabl e to calcu late resul t since non-n umeri c resul t obtai frederick for compo nent test. Not Available [facility] ([facility]) [address] [facility], [place], [address], 01/12/2025 06:22:14 01/11/20 25 01/11/2025 QUANT IFERO N-TB GOLD PLUS quantiferon incubation INCUBA TION PERFOR MED. Not Available [facility] ([facility]) [address] [facility], [place], [address], 01/12/2025 19:09:58 01/11/2001/11/2025 QUANT IFERO N-TB GOLD PLUS quantiferon criteria COMMEN T Quant iFERO N-TB Gold Plus is a quali tativ e indir ect test for M tuber culos is infec tion (incl uding disea se) and is inten ded for use in conju nctio n with risk asses sment , radio graph y, and other medic al and diagn ostic evalu ation s. The Quant iFERO N-TB Gold Plus resul t is deter mined by subtr actin g the Nil value from eithe r TB antig en (Ag) value . The Mitog en tube serve s as a contr ol for the test. Not Available [facility] ([facility]) [address] [facility], [place], [address], 01/12/2025 19:09:58 01/11/20 25 01/12/2025 QUANT IFERO N-TB GOLD PLUS quantiferon- TB gold plus NEGATI VE negati ve No respo nse to Ryan atkinson is antig ens detec ashley. Infec tion with Ryan atkinson is is unlik bertrand, but high risk indiv idual s shoul d be consi dered for addit ional testi ng (ATS/ IDSA/ CDC Clini caryn Pract ice Guide lines , 2017) . The refer ence range is an Antig en minus Nil resul t of <0.35 IU/mL . Chemi lumin escen ce immun oassa y metho dolog y Not Available [facility] ([facility]) [address] [place], [address], 01/12/2025 19:09:58 01/11/2001/12/2025 QUANT IFERO N-TB GOLD PLUS quantiferon TB1 Ag value 0.04 IU/mL Not Available [facility] ([facility]) [address] [place], [address], 01/12/2025 19:09:58 01/11/20 25 01/12/2025 QUANT IFERO N-TB GOLD PLUS quantiferon TB2 Ag value 0.04 IU/mL Not Available [facility] ([facility]) [address] [place], [address], 01/12/2025 19:09:58 01/11/2001/12/2025 QUANT IFERO N-TB GOLD PLUS quantiferon nil value 0.04 IU/mL Not Available [facility] ([facility]) [address] [place], [address], 01/12/2025 19:09:58 01/11/20 25 01/12/2025 QUANT IFERO N-TB GOLD PLUS quantiferon mitogen value >10.00 IU/mL Not Available [facility] ([facility]) [address] [place], [address], 01/12/2025 19:09:58 Result Notes None recorded. Problems No Known Problems Procedures Surgical History Date Name Laterality Status Provider Name and Address Organization Details Recorded Time operation on oral cavity completed MEENU Black [facility] 01/10/2025 10:52:56 Imaging Results None recorded. Procedure Notes None recorded. Medical Equipment None Reported. Allergies Allergen ID Allergen Name Allergen Category Reaction Reaction Severity Criticality Documentation Date Start Date Code Code System Note Provider Name and Address Organization Details Recorded Time [id number] cultivate d mushroom extract food,medi cation anaphylax is severe high 01/10/2025 04751 17 RxNorm MEENU Cardenas, [facility] 10:48:47 Medications Name Sig Start Date Stop Date Status Note LastModified by Organization Details LastModified Time dextroamphet amine-amphet amine 10 mg tablet 01/10 completed Not Available Not Available Not Available fluoxetine 10 mg capsule 01/10 completed Not Available Not Available Not Available Biktarvy 50 mg-200 mg-25 mg tablet Take 1 tablet every day by oral route for 90 days. 2024 active Not Available Not Available Not Avai lable Biktarvy active Not Available Not Avai lable Not Available Vitals Date Recorded Body height Body mass index (BMI) Provider Name and Address Organization Details Last Updated DateTime 01/10/2025 165.1 cm 31.6 kg/m2 DARA ANDRES NP Attn: Accounting,[address] [place], [address], [facility] 01/10/2025 11:00:36 Date Recorded Body weight Oxygen saturation Heart rate Body temperature Systolic And Diastolic Provider Name and Address Organization Details Last Updated DateTime 05361.6 g 100 % 48 /min 97.2 [degF] 121/71 mm[Hg] Tammie martinez RN [place] Dyllan [facility] 10:57:39 Social History Question Answer Notes LastModified by Organizat ion Details LastModified Time Tobacco Smoking Status Former Smoker MEENU Black [place] Dyllan [facility] 01/10/2025 10:51:49 How Many Years Have You Consumed Alcohol? 6 Information not available 01/10/2025 What Is Your Level Of Caffeine Consumption? Moderate Information not available 01/10/2025 Date Of 1st HIV Medical Visit 01/10/2025 Information not available 12/26/2024 RWE Slide Cap On Charges 1354.28 [email or web address] Information not available 01/01/2025 HIV Dx By [facility] No Informatio n not available 12/26/2024 HIV QI Project No Information not available 12/26/2024 New Patient Type At Intake Newly Diagnosed (12 Mos) Information not available 12/26/2024 URN [id number] Information no t available 12/26/2024 Delivery Rn / Phone # Katie Kerr ([phone] ) Information not available 12/26/2024 Delivery RnVaccine Key Customer Leader [facility] Information not available 12/26/2024 Risk Factor 1 (MSM) Men Who Have Sex With Men Information not available 12/26/2024 Program Designation Jerod White Information not available 12/26/2024 HIV Diagnosis Date 10/02/2024 Information not available 12/26/2024 What Was The Date Of Your Most Recent Tobacco Screening? 01/10/2025 Information not available 01/10/2025 At What Age Did You Start Smoking Tobacco? 15 Information not available 01/10/2025 Has Tobacco Cessation Counseling Been Provided? Yes Information not available 01/10/2025 On What Date Was Tobacco Cessation Counseling Provided? 01/10/2025 Information not available 01/10/2025 How Many Years Have You Smoked Tobacco? 1 Information not available 01/10/2025 How Many Years Have You Used E-cigarettes Or Vape? 8 Information not available 01/10/2025 Sex: Unknown Functional Status Question Answer Note LastModified by Organizat ion Details LastModified Time Do you use any illicit or recreational drugs? Yes marijuana Information not available 01/10/2025 Do you or have you ever used any other forms of tobacco or nicotine? Yes Information not available 01/10/2025 What is your level of alcohol consumption? Occasional Information not available 01/10/2025 Do you or have you ever used smokeless tobacco? Never used smokeless tobacco Information not available 01/10/2025 Do you or have you ever used e-cigarettes or vape? Current user of electronic cigarettes Information not available 01/10/2025 Mental Status None recorded. Family History Relationship Description Onset Age of this Age Resolved Age Notes LastModified by Organization Details LastModified Time Father No current problems or disability bottensmeierr n Not available 01/10/2025 10:49:49 Mother No current problems or disability bottensmeierr n Not available 01/10/2025 10:49:49 Medical History Condition Response Coronary Artery Disease N Other N High Blood Pressure N Atrial Fibrillation N Thyroid Problems N Kidney or Bladder Problems N GI Problems N Depression Y COPD N Blood Clots N Have you had a mammogram in the last yea r? N Skin Problems Y Eating Disorder N Anemia N Heart Attack ([place]) N Diabetes N Anxiety Disorder Y Muscle, Joint, or Bone Problems N Seizures/Epilepsy N Have you had a colonoscopy in the last 1 0 years? N Arthritis N Acid Reflux (GERD) Y Cancer N Stroke N Asthma Y Allergies Y Have you had a PSA blood test in the las t year? N ADHD Y Substance Abuse N High Cholesterol N Hepatitis N Liver Disease N Schizophrenia N Headaches Y Osteoporosis N Heart Failure N Immunizations Vaccine Type Date Status Note Provider Nam e and Address Organization Details Recorded Time DTaP 2 completed Not Available [facility] 01/10/2025 10:38:03 IPV 2 completed Not Available [facility] 01/10/2025 10:38:03 Hib-Hep B 2 completed Not Available [facility] 01/10/2025 10:38:03 pneumococcal conjugate PCV 7 3 completed Not Available [facility] 01/10/2025 10:38:03 DTaP 3 completed Not Available [facility] 01/10/2025 10:38:03 Hib-Hep B 3 completed Not Available [facility] 01/10/2025 10:38:03 IPV 3 completed Not Available [facility] 01/10/2025 10:38:03 pneumococcal conjugate PCV 7 3 completed Not Available [facility] 01/10/2025 10:38:03 Hib, unspecified formulation 3 completed Not Available [facility] 01/10/2025 10:38:03 DTaP 3 completed Not Available [facility] 01/10/2025 10:38:03 Hep B, adolescent or pediatric 3 completed Not Available [facility] 01/10/2025 10:38:03 pneumococcal conjugate PCV 7 3 completed Not Available [facility] 01/10/2025 10:38:03 MMR 3 completed Not Available [facility] 01/10/2025 10:38:03 pneumococcal conjugate PCV 7 3 completed Not Available [facility] 01/10/2025 10:38:03 Hib, unspecified formulation 3 completed Not Available [facility] 01/10/2025 10:38:03 DTaP 3 completed Not Available [facility] 01/10/2025 10:38:03 varicella 3 completed Not Available [facility] 01/10/2025 10:38:03 IPV 3 completed Not Available [facility] 01/10/2025 10:38:03 DTaP 7 completed Not Available [facility] 01/10/2025 10:38:03 IPV 7 completed Not Available [facility] 01/10/2025 10:38:03 influenza, split (incl. purified surface antigen) 8 completed Not Available [facility] 01/10/2025 10:38:03 Meningococcal MCV4O 3 completed Not Available [facility] 01/10/2025 10:38:03 Tdap 3 completed Not [facility] 01/10/2025 10:38:03 Influenza, live, quadrivalent, intranasal 4 completed Not Available [facility] 01/10/2025 10:38:03 varicella 6 completed Not Available [facility] 01/10/2025 10:38:03 meningococcal MCV4P 9 completed Not Available [facility] 01/10/2025 10:38:03 Tdap 9 completed Not Available [facility] 01/10/2025 10:38:03 HPV9 1 completed Not Available [facility] 01/10/2025 10:38:03 HPV9 1 completed Not Available [facility] 01/10/2025 10:38:03 HPV9 1 completed Not Available [facility] 01/10/2025 10:38:03 meningococcal conjugate quadrivalent, MenACWY-TT (MCV4) 2 completed Not Available [facility] 01/10/2025 10:38:03 Pneumococcal conjugate PCV20, polysaccharide SSR768 conjugate, adjuvant, PF 2 completed Not Available [facility] 01/10/2025 10:38:03 Hep A-Hep B 3 completed Not Available [facility] 01/10/2025 10:38:03 meningococcal conjugate quadrivalent, MenACWY-TT (MCV4) 3 completed Not Available [facility] 01/10/2025 10:38:03 pneumococcal polysaccharide PPV23 3 completed Not Available [facility] 01/10/2025 10:38:03 MMR 5 completed Not Available [facility] 01/10/2025 10:38:03 Past Encounters Encounter ID Performer Location Encounter Start Date Encounter Closed Date Diagnosis/Indication Diagnosis SNOMED-CT Code Diagnosis ICD10 Code Diagnosis IMO Codes Diagnosis Note [id number] Rigo Musa MD Prudencio dave ) [address] [place] [address] 01/10/2025 10:24:57 01/22/2025 10:15:45 Human immunodeficiency virus infection 09956538 B20 44301 Plan of Care:-chec k labs on patient-ad vised on safe sex practices. wearing condoms and testing with each new partner-ea t a heart healthy diet-avoid smoking-no tify if changes in vision, frequent or severe headaches, fevers, night sweats, anorexia, LAD, odynophagi a, cough, diarrhea or rash.-do not miss doses of medication -follow up with any questions you have! Obese class II 450426855 1 24632 E66.812 E66.3 [id number] Pt to begin to engage in the following: -Healthy sleep hygiene (phone put away at night, lights out, set bedtime with at least 8 hours sleep)-Exe rcise 30-60 min daily-Make healthy diet choices (Mediterra nean)-Dmitriy quiroz only water or green tea Asymptomat ic bradycardia 6043016855 R00.9 [id number] Plan of care:-foll ow up with cardiology -educated on signs and symptoms or a heart attack.-pt to go to ER if CP, SOB, or additional concerning symptoms develop Health Concerns Section Related Observation LastModified by Organization Detai ls LastModified Time None Recorded Concern Status LastModified by Organization Details LastModified Time None Recorded Advance Directives Directive None Recorded Payers Insurance Date Sequence Insurance Name Policy Number Policy Louise Covered Member ID Louise Member ID Guarantor Name 01/10/2025 1 [facility] - DOS PRIOR TO 2020 (MEDICAID REPLACEMENT - HMO) Darrel Herron [id number] [facility] 01/10/2025 1 [facility] 01/19/2025 SLIDING FEE SCHEDULE - DISCOUNT [facility] 01/10/2025 1 [place] [facility] Darrel Herron [id number] [facility] Notes Date Note Type Note Provider Name and Address Organization Details Recorded Time 01/10/2025 text/html ROS as noted in the HPI The patient is here to establish care. He has a hx of HIV and takes biktarvy daily without missed doses. Pt is feeling well today and denied changes in vision, frequent or severe headaches, fevers, night sweats, excessive fatigue, anorexia, LAD, odynophagia, cough, diarrhea or rash. The patient takes biktarvy consistently without missed doses. He denies additional concerns. DARA ANDRES NP Attn: Accounting[address] [facility], [place], [address], [place] [facility] 01/10/2025 22:16:46
--- OUTSIDE RECORDS SUMMARY | 2025-03-03 09:50 | XMS_ITS | Clinical Summary ---
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 This disclosure is being madepursuant to the Care Everywhere program and may not contain all information available regarding this patient. Last updated 17.[facility] [employer] Allergies No known active allergies Medications * [...] taking.Reported on 01/07/2022 ID Now COVID-19 KIT Belcher 1 kit into the nose 1 (one) [...] on file Legal Sex Male 5:41 AM ROLL TESTER Gender Identity Not on file Sexual Orientation Not on file Last Filed Vital Signs Vital Sign Reading Time Taken Comments Blood Pressure 122/80 04/23/2022 10:46 AM ROLL TESTER Pulse 83 04/23/2022 10:46 AM ROLL TESTER Temperature 35.6 C (96.1 F) 04/23/2022 10:46 AM ROLL TESTER Respiratory Rate 18 04/23/2022 10:46 AM ROLL TESTER Oxygen Saturation 98% 04/23/2022 10:46 AM ROLL TESTER Inhaled Oxygen Concentration - - Weight 81 [...] A) Non-react aidan 01/13/2022 4:37 PM CDT [facility] Comment: HIV-1/HIV-2 Antibody + Antigen [...] ORDERABLES Fi nal Result Performing Organization Address City/[facility]/ZIP Co de Phone Number [address] [address], [facility] [phone] * Hep C Antibody with reflex ([facility]) (01/07/2022 10:27 AM CDT) Hepatitis C Antibody NON-REACTI VE NON-REACT [facility] Signal to Cut-Off 0.11 <1.00 [facility] Comment: HCV antibody was non-reactive. There is no laboratory evidence of HCV infection. In most cases, no further action is required. However, if recent HCV exposure is suspected, a test for HCV RNA (test code 94313) is suggested. For additional information please refer to http://education.Information Assurance/faq/BTE75x0 (This link is being provided for informational/ educational purposes only.) Test Performed at: [facility] [address] [place] [address] ADAMA OH DO,MPH Blood BLOOD SPECIMEN / Unknown 01/07/2022 10:27 AM CDT 01/09/2022 5:13 AM CDT us Nolvia Owen TYPEWRITER ASSEMBLY AND PARTS INSPECTOR-BUSINESS DEVELOPMENT RECRUITER LAB - CHEMISTRY ORDERAB LES Final Result Performing Organization Address City/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
[2025-03-03 09:59] LABS: Alanine Aminotransferase 28 U/L (6-50); Albumin Level 4.8 g/dL (3.5-5.1); Alkaline Phosphatase 131 U/L (38-126); Anion Gap 12 mmol/L (4-12); Aspartate Amino Transferase 37 U/L (17-59); Bilirubin,Total 1.4 mg/dL (0.2-1.3); Blood Urea Nitrogen 16 mg/dL (9-20); Calcium 9.5 mg/dL (8.4-10.2); Carbon Dioxide 18 mmol/L (22-30); Chloride 110 mmol/L (98-107); Estimated CRCL calculation 94 ml/min; Estimated Glomerular Filt Rate > 60; Glucose 97 mg/dL (65-110); Potassium 3.9 mmol/L (3.4-5.0); Sodium 140 mmol/L (137-145); Total Protein 8.6 g/dL (6.3-8.2)
[2025-03-03 10:39] LABS: Add Urine Microscopic? YES; Appearance Urine Turbid (Clear); Glucose Urine UA Negative (Negative); Leukocyte Esterase Ur Negative LEU/UL (Negative); Nitrate Urine Negative (Negative); Non Pathogenic Casts 0-2; Specific Grav Ur 1.034 (1.001-1.035)
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
[2025-03-03 12:02] VITALS: BP 128/76; PULSE 76; RESP 15; O2SAT 99
== END 2025-03-03 12:24 | disposition home or self-care (01) ==
PROVIDERS: Emergency Provider Emergency Medicine; PCP Midwife
DX: R10.32 Left lower quadrant pain (principal); J45.909 Unspecified asthma, uncomplicated; K21.9 Gastro-esophageal reflux disease without esophagitis; Z21 Asymptomatic human immunodeficiency virus [HIV] infection status; Z79.899 Other long term (current) drug therapy
CPT/HCPCS: 36415; 74176; 80053; 81001; 85025; 99284